=== PATIENT | female | born 1970 | race Caucasian/White ===

== ENCOUNTER 2016-10-13 18:22 | Emergency (ER) | payer MEDICARE, OTHER ==
[2016-10-13 18:37] VITALS: TEMP 98.3
[2016-10-13] MEDS ORDERED: SODIUM CHLORIDE 0.9% 1,000 ML IV ONE (20:44)
[2016-10-13] MEDS ORDERED: HYDROmorphone 1 MG/ML 1 ML SYRINGE IVP STA (20:44)
--- NOTE | 2016-10-13 20:47 | ED ---
Abdominal Pain HPI - General Chief Complaint: Abdominal Pain Stated Complaint: rt side pain Time Seen by Provider: 10/13/16 20:15 Source: patient, RN notes reviewed Mode of arrival: ambulatory Limitations: no limitations - History of Present Illness Initial Comments: Patient is a 46-year-old female presents to the emergency for evaluation of abdominal pain. Patient states the pain began on Tuesday. Patient states the pain has been persistent ever since. Patient states the pain began worsening today. Patient does state that she is on oxycodone for chronic neck and back pain. Patient states the oxycodone has been helping her pain. Patient states she hasn't had any medications since 3 PM and the pain is worsening. Patient states the pain is located in her right lower quadrant area. Patient states she still has her appendix and gallbladder. Patient states she has a history of total hysterectomy, but still has her ovaries. Patient does states that she has a history of ovarian cysts. Patient states she is slightly nauseous but denies any vomiting. Patient states her last bowel movement was this morning. Patient states she originally thought she was constipated. Patient states she has a history of IBS. Patient denies pain or burning during urination, trouble urinating or blood in urine. Patient denies history of kidney stones. Patient denies any fevers or chills. Patient denies chest pain or shortness of breath. Patient states that 8 out of 10 constant right lower quadrant pain. - Related Data Home Medications Medication Instructions Recorded Confirmed Gabapentin 800 mg PO QID 10/13/16 10/13/16 Phentermine HCl [Adipex-P] 37.5 mg PO QAM 10/13/16 10/13/16 oxyCODONE HCL [Roxicodone] 30 mg PO QID PRN 10/13/16 10/13/16 traMADol HCL [Ultram] 50 mg PO TID 10/13/16 10/13/16 Allergies Allergy/AdvReac Type Severity Reaction Status Date / Time Sulfa (Sulfonamide Allergy Rash/Hives Verified 10/13/16 20:38 Antibiotics) Review of Systems ROS Statement: Those systems with pertinent positive or pertinent negative responses have been documented in the HPI. ROS Other: All systems not noted in ROS Statement are negative. Past Medical History Additional Past Medical History / Comment(s): IBS, chronic back pain History of Any Multi-Drug Resistant Organisms: MRSA Date of last positivie culture/infection: 2009 MDRO Source:: nose Past Surgical History: Back Surgery, Hysterectomy, Orthopedic Surgery, Tubal Ligation Past Psychological History: No Psychological Hx Reported Smoking Status: Current every day smoker Past Alcohol Use History: Rare Past Drug Use History: None Reported General Exam - General Exam Comments Initial Comments: Laying in exam room, no acute distress. Limitations: no limitations General appearance: alert, in no apparent distress Head exam: Present: atraumatic, normocephalic, normal inspection Eye exam: Present: normal appearance ENT exam: Present: normal exam Neck exam: Present: normal inspection Respiratory exam: Present: normal lung sounds bilaterally. Absent: respiratory distress Cardiovascular Exam: Present: regular rate, normal rhythm, normal heart sounds GI/Abdominal exam: Present: soft, tenderness (Right lower quadrant tenderness), normal bowel sounds. Absent: distended, guarding, rebound, rigid Extremities exam: Present: normal inspection Back exam: Present: normal inspection Neurological exam: Present: alert, oriented X3, CN II-XII intact, normal gait Psychiatric exam: Present: normal affect, normal mood Skin exam: Present: warm, dry, intact, normal color. Absent: rash Course Vital Signs 10/13/16 18:34 Temperature 98.3 F Pulse Rate 92 Respiratory 20 Rate Blood Pressure 128/76 O2 Sat by Pulse 99 Oximetry Medical Decision Making - Medical Decision Making Patient is a 46-year-old female presents to the emergency room for evaluation of right lower quadrant pain. Labs show no concerning findings. Urinalysis within normal limits. CT abdomen/pelvis was ordered to rule out appendicitis. Appendix appears normal. 2 mm stone in the lower pole right kidney noted. 3 cm right ovarian cyst noted. Ovarian cyst probable cause of patient's pain. Patient states she takes oxycodone at home. Advised patient to continue taking that as needed. Advised patient to follow-up with her [facility] or primary care provider for reevaluation. Advised patient to return for worsening or concerning symptoms. Patient states she understands everything that was discussed with her. Case discussed with Dr. Griffin. - Lab Data Result diagrams: 10/13/16 21:05 10/13/16 21:05 Lab Results 10/13/16 10/13/16 10/13/16 Range/Units 21:05 21:05 21:05 WBC 11.6 H (3.8-10.6) k/uL RBC 4.84 (3.80-5.40) m/uL Hgb 15.5 (11.4-16.0) gm/dL Hct 45.9 (34.0-46.0) % MCV 94.9 (80.0-100.0) fL MCH 32.0 (25.0-35.0) pg MCHC 33.7 (31.0-37.0) g/dL RDW 13.1 (11.5-15.5) % Plt Count 292 (150-450) k/uL Neutrophils % 52 % Lymphocytes % 38 % Monocytes % 5 % Eosinophils % 3 % Basophils % 1 % Neutrophils # 6.0 (1.3-7.7) k/uL Lymphocytes # 4.4 (1.0-4.8) k/uL Monocytes # 0.6 (0-1.0) k/uL Eosinophils # 0.3 (0-0.7) k/uL Basophils # 0.1 (0-0.2) k/uL Sodium 138 (137-145) mmol/L Potassium 4.2 (3.5-5.1) mmol/L Chloride 105 (98-107) mmol/L Carbon Dioxide 25 (22-30) mmol/L Anion Gap 8 mmol/L BUN 12 (7-17) mg/dL Creatinine 0.55 (0.52-1.04) mg/dL Est GFR (MDRD) Af Amer >60 (>60 ml/min/1.73 sqM) Est GFR (MDRD) Non-Af >60 (>60 ml/min/1.73 sqM) Glucose 115 H (74-99) mg/dL Calcium 9.6 (8.4-10.2) mg/dL Total Bilirubin 0.7 (0.2-1.3) mg/dL AST 25 (14-36) U/L ALT 21 (9-52) U/L Alkaline Phosphatase 71 (38-126) U/L Total Protein 7.4 (6.3-8.2) g/dL Albumin 4.1 (3.5-5.0) g/dL Amylase 33 (30-110) U/L Lipase 34 (23-300) U/L Urine Color Light Yellow Urine Appearance Clear (Clear) Urine pH 6.0 (5.0-8.0) Ur Specific [place] 1.005 (1.001-1.035) Urine Protein Negative (Negative) Urine Glucose (UA) Negative (Negative) Urine Ketones Negative (Negative) Urine Blood Negative (Negative) Urine Nitrite Negative (Negative) Urine Bilirubin Negative (Negative) Urine Urobilinogen <2.0 (<2.0) mg/dL Ur Leukocyte Esterase Negative (Negative) - Radiology Data Radiology results: report reviewed, image reviewed Disposition Clinical Impression: Right ovarian cyst Disposition: HOME SELF-CARE Condition: Good Instructions: Ovarian Cyst (ED) Additional Instructions: Take at home pain medications as needed. Please follow up with primary care provider or [facility] in 1-2 days. If any new symptom arises or symptoms worsen, return to ER as soon as possible. Referrals: Roger Weber MD [Primary Care Provider] - 1-2 days Time of Disposition: 23:10
[2016-10-13 21:13] LABS: Appearance,Urine Clear (Clear); Bilirubin,Urine Negative (Negative); Glucose,Urine (UA) Negative (Negative); Ketones,Urine Negative (Negative); Leukocyte Esterase,Urine Negative (Negative); Nitrite,Urine Negative (Negative); Protein,Urine Negative (Negative); Specific Gravity,Urine 1.005 (1.001-1.035); UA Billing (MACRO vs. MICRO) CHEM; Urobilinogen,Urine <2.0 mg/dL (<2.0)
[2016-10-13 21:14] LABS: Basophils # (A) 0.1 k/uL (0-0.2); Basophils % (A) 1 %; CH 32.1; Eosinophils # (A) 0.3 k/uL (0-0.7); Eosinophils % (A) 3 %; HCT 45.9 % (34.0-46.0); HGB 15.5 gm/dL (11.4-16.0); Luc # (Auto) 0.18; Luc % (Auto) 2; Lymphocytes # (A) 4.4 k/uL (1.0-4.8); Lymphocytes % (A) 38 %; MCHC 33.7 g/dL (31.0-37.0); MCV 94.9 fL (80.0-100.0); Mean Platelet Volume 7.3; Monocytes # (A) 0.6 k/uL (0-1.0); Monocytes % (A) 5 %; Neutrophils % (A) 52 %; RBC 4.84 m/uL (3.80-5.40); RDW 13.1 % (11.5-15.5); WBC 11.6 k/uL (3.8-10.6); WBC (Perox) 11.32
--- NOTE | 2016-10-13 21:15 | XR ---
EXAMINATION TYPE: XR KUB DATE OF EXAM: 10/13/2016 9:11 PM COMPARISON: 11/11/2011 INDICATION: Pain right lower quadrant TECHNIQUE: Single view abdomen frontal FINDINGS: There is a normal bowel gas pattern. Psoas margins are normal. No organomegaly is present. Nonspecific bowel gas is present. No free air is present. No differential air-fluid levels are present. Postsurgical changes are present L4-5 with pedicle screws and fixation rods. IMPRESSION: 1. Nonspecific abdomen.
[2016-10-13 21:22] LABS: ALT 21 U/L (9-52); AST 25 U/L (14-36); Alkaline Phosphatase 71 U/L (38-126); Amylase 33 U/L (30-110); Anion Gap 8 mmol/L; Blood Urea Nitrogen 12 mg/dL (7-17); Calcium 9.6 mg/dL (8.4-10.2); Carbon Dioxide 25 mmol/L (22-30); Chloride 105 mmol/L (98-107); Glucose 115 mg/dL (74-99); Non-African American GFR(MDRD) >60 (>60 ml/min/1.73 sqM); Potassium 4.2 mmol/L (3.5-5.1); Sodium 138 mmol/L (137-145); Total Bilirubin 0.7 mg/dL (0.2-1.3); Total Protein 7.4 g/dL (6.3-8.2)
[2016-10-13] MEDS ORDERED: RX INFO: IV CONTRAST WAS GIVEN 1 EACH MISC MISCELLANE PRN (21:35)
--- NOTE | 2016-10-13 22:59 | CT ---
EXAM: CT Abdomen and Pelvis With Intravenous Contrast. CLINICAL HISTORY: Reason: Pain TECHNIQUE: Axial computed tomography images of the abdomen and pelvis with intravenous contrast. CTDI is 9.5 mGy and DLP is 810 mGy-cm This CT exam was performed using one or more of the following dose reduction techniques: automated exposure control, adjustment of the mA and/or kV according to patient size, and/or use of iterative reconstruction technique. COMPARISON: 11/11/11 FINDINGS: The lung bases are clear. The liver, biliary tree, pancreas, spleen, and adrenal glands are within normal limits for noncontrast technique. Once again, there is a 2 mm calculus to the lower pole of the right kidney. No ureteral stone or hydronephrosis. There is no bowel obstruction or perforation. A normal appendix is noted. Status post hysterectomy. This was performed in the interval. 3 cm right ovarian cyst. Mild aortoiliac atherosclerosis without aneurysm. L4-5 fusion with pedicle screws and paravertebral rods and interbody graft for treatment of L4 spondylolysis, also new in the interval. No acute fracture. IMPRESSION: No clear explanation for pain. Nonobstructing right renal calculus again noted. Interval hysterectomy and lumbar fusion. 3 cm right ovarian cyst.
[2016-10-13 23:28] VITALS: BP 130/61; PULSE 84; RESP 18
== END 2016-10-13 23:28 | disposition home or self-care (01) ==
LOC: EC 18:22
DX: N83.201 Unspecified ovarian cyst, right side (principal); M54.2 Cervicalgia; M54.9 Dorsalgia, unspecified; K58.9 Irritable bowel syndrome, unspecified; G89.29 Other chronic pain; F17.200 Nicotine dependence, unspecified, uncomplicated; Z79.891 Long term (current) use of opiate analgesic; Z79.899 Other long term (current) drug therapy; Z88.2 Allergy status to sulfonamides; Z90.710 Acquired absence of both cervix and uterus
CPT/HCPCS: 36415; 80053; 82150; 83690; 85025; 81003; 74000; 74177; 99284; 96374; 96361; J1170; Q9967

== ENCOUNTER 2017-02-03 23:35 | Inpatient (IN) | payer MEDICARE, OTHER ==
[2017-02-03] MEDS ORDERED: MORPHINE SULFATE 4 MG/ML SYRINGE IV STA (23:56)
[2017-02-03] MEDS ORDERED: KETOROLAC 30 MG/ML 1 ML VIAL IVP STA (23:56)
[2017-02-03] MEDS ORDERED: ONDANSETRON 4 MG/2 ML VIAL IVP STA (23:56)
[2017-02-03] MEDS ORDERED: SODIUM CHLORIDE 0.9% 500 ML IV STA (23:56)
[2017-02-04] MEDS ORDERED: HYDROmorphone 1 MG/ML 1 ML SYRINGE IVP STA (00:30)
[2017-02-04 00:34] LABS: Basophils # (A) 0.2 k/uL (0-0.2); Basophils % (A) 1 %; CH 32.8; CHCM 34.7; Eosinophils # (A) 0.5 k/uL (0-0.7); Eosinophils % (A) 3 %; HCT 44.5 % (34.0-46.0); HDW 2.39; HGB 14.8 gm/dL (11.4-16.0); Luc # (Auto) 0.21; Luc % (Auto) 1; Lymphocytes # (A) 4.2 k/uL (1.0-4.8); Lymphocytes % (A) 27 %; MCH 31.6 pg (25.0-35.0); MCHC 33.3 g/dL (31.0-37.0); MCV 94.9 fL (80.0-100.0); Mean Platelet Volume 7.8; Monocytes # (A) 0.6 k/uL (0-1.0); Monocytes % (A) 4 %; Neutrophils # (A) 9.6 k/uL (1.3-7.7); Neutrophils % (A) 63 %; RBC 4.69 m/uL (3.80-5.40); RDW 13.9 % (11.5-15.5); WBC 15.3 k/uL (3.8-10.6); WBC (Perox) 14.36
[2017-02-04 00:34] LABS: Appearance,Urine Clear (Clear); Bilirubin,Urine Negative (Negative); Glucose,Urine (UA) Negative (Negative); Ketones,Urine Negative (Negative); Leukocyte Esterase,Urine Negative (Negative); Nitrite,Urine Negative (Negative); Protein,Urine Trace (Negative); Specific Gravity,Urine 1.014 (1.001-1.035); UA Billing (MACRO vs. MICRO) CHEM; Urobilinogen,Urine <2.0 mg/dL (<2.0)
[2017-02-04 00:45] LABS: ALT 31 U/L (9-52); AST 19 U/L (14-36); Alkaline Phosphatase 98 U/L (38-126); Amylase <30 U/L (30-110); Anion Gap 11 mmol/L; Blood Urea Nitrogen 10 mg/dL (7-17); Calcium 9.5 mg/dL (8.4-10.2); Carbon Dioxide 24 mmol/L (22-30); Chloride 102 mmol/L (98-107); Glucose 95 mg/dL (74-99); Non-African American GFR(MDRD) >60 (>60 ml/min/1.73 sqM); Potassium 4.4 mmol/L (3.5-5.1); Sodium 137 mmol/L (137-145); Total Bilirubin 0.3 mg/dL (0.2-1.3); Total Protein 6.8 g/dL (6.3-8.2)
[2017-02-04] MEDS ORDERED: RX INFO: IV CONTRAST WAS GIVEN 1 EACH MISC MISCELLANE PRN (01:05)
--- NOTE | 2017-02-04 01:06 | ED ---
Abdominal Pain HPI - General Chief Complaint: Abdominal Pain Stated Complaint: abd pain Time Seen by Provider: 02/03/17 23:51 Source: patient, RN notes reviewed Mode of arrival: ambulatory Limitations: no limitations - History of Present Illness Initial Comments: 46-year-old female presents emergency Department chief complaint right lower quadrant abdominal pain. Patient states she has a history of ovarian cysts and states pain feels similar. Patient states that she did have a temp of 100.8 prior arrival though she took Motrin. Patient states that she overtakes pain medications at home but states is not helping for this pain. Patient states that she's had a prior hysterectomy and tubal ligation. Patient denies any back pain, upper abdominal pain, chest pain, shortness of breath, dysuria or hematuria. - Related Data Home Medications Medication Instructions Recorded Confirmed Gabapentin 800 mg PO QID 10/13/16 10/13/16 Phentermine HCl [Adipex-P] 37.5 mg PO QAM 10/13/16 10/13/16 oxyCODONE HCL [Roxicodone] 30 mg PO QID PRN 10/13/16 10/13/16 traMADol HCL [Ultram] 50 mg PO TID 10/13/16 10/13/16 Allergies Allergy/AdvReac Type Severity Reaction Status Date / Time morphine Allergy Rash/Hives Verified 02/04/17 00:27 Sulfa (Sulfonamide Allergy Rash/Hives Verified 02/03/17 23:49 Antibiotics) Review of Systems ROS Statement: Those systems with pertinent positive or pertinent negative responses have been documented in the HPI. ROS Other: All systems not noted in ROS Statement are negative. Past Medical History Additional Past Medical History / Comment(s): IBS, chronic back pain History of Any Multi-Drug Resistant Organisms: MRSA Date of last positivie culture/infection: 2009 MDRO Source:: nose Past Surgical History: Back Surgery, Hysterectomy, Orthopedic Surgery, Tubal Ligation Past Psychological History: No Psychological Hx Reported Smoking Status: Current every day smoker Past Alcohol Use History: Rare Past Drug Use History: Marijuana General Exam Limitations: no limitations General appearance: alert, in no apparent distress Neck exam: Present: normal inspection. Absent: tenderness, meningismus, lymphadenopathy Respiratory exam: Present: normal lung sounds bilaterally. Absent: respiratory distress, wheezes, rales, rhonchi, stridor Cardiovascular Exam: Present: regular rate, normal rhythm, normal heart sounds. Absent: systolic murmur, diastolic murmur, rubs, gallop, clicks GI/Abdominal exam: Present: soft, tenderness (moderate right lower quadrant tenderness), normal bowel sounds. Absent: distended, guarding, rebound, rigid Back exam: Absent: CVA tenderness (R), CVA tenderness (L) Course Vital Signs 02/03/17 23:45 Temperature 97.5 F L Pulse Rate 98 Respiratory 18 Rate Blood Pressure 111/59 O2 Sat by Pulse 100 Oximetry Medical Decision Making - Lab Data Result diagrams: 02/04/17 00:01 02/04/17 00:01 Lab Results 02/04/17 02/04/17 02/04/17 Range/Units 00:01 00:01 00:21 WBC 15.3 H (3.8-10.6) k/uL RBC 4.69 (3.80-5.40) m/uL Hgb 14.8 (11.4-16.0) gm/dL Hct 44.5 (34.0-46.0) % MCV 94.9 (80.0-100.0) fL MCH 31.6 (25.0-35.0) pg MCHC 33.3 (31.0-37.0) g/dL RDW 13.9 (11.5-15.5) % Plt Count 334 (150-450) k/uL Neutrophils % 63 % Lymphocytes % 27 % Monocytes % 4 % Eosinophils % 3 % Basophils % 1 % Neutrophils # 9.6 H (1.3-7.7) k/uL Lymphocytes # 4.2 (1.0-4.8) k/uL Monocytes # 0.6 (0-1.0) k/uL Eosinophils # 0.5 (0-0.7) k/uL Basophils # 0.2 (0-0.2) k/uL Sodium 137 (137-145) mmol/L Potassium 4.4 (3.5-5.1) mmol/L Chloride 102 (98-107) mmol/L Carbon Dioxide 24 (22-30) mmol/L Anion Gap 11 mmol/L BUN 10 (7-17) mg/dL Creatinine 0.60 (0.52-1.04) mg/dL Est GFR (MDRD) Af Amer >60 (>60 ml/min/1.73 sqM) Est GFR (MDRD) Non-Af >60 (>60 ml/min/1.73 sqM) Glucose 95 (74-99) mg/dL Calcium 9.5 (8.4-10.2) mg/dL Total Bilirubin 0.3 (0.2-1.3) mg/dL AST 19 (14-36) U/L ALT 31 (9-52) U/L Alkaline Phosphatase 98 (38-126) U/L Total Protein 6.8 (6.3-8.2) g/dL Albumin 3.9 (3.5-5.0) g/dL Amylase <30 L (30-110) U/L Lipase 32 (23-300) U/L Urine Color Yellow Urine Appearance Clear (Clear) Urine pH 6.0 (5.0-8.0) Ur Specific [place] 1.014 (1.001-1.035) Urine Protein Trace H (Negative) Urine Glucose (UA) Negative (Negative) Urine Ketones Negative (Negative) Urine Blood Negative (Negative) Urine Nitrite Negative (Negative) Urine Bilirubin Negative (Negative) Urine Urobilinogen <2.0 (<2.0) mg/dL Ur Leukocyte Esterase Negative (Negative) Disposition Clinical Impression: Infectious enteritis, Ovarian cyst Narrative: rule out appendicitis Disposition: ADMITTED IP TO THIS HOSP Condition: Fair Referrals: Roger Weber MD [Primary Care Provider] - 1-2 days
--- NOTE | 2017-02-04 01:22 | XR ---
EXAM: XR Abdomen, 1 View CLINICAL HISTORY: Reason: abdominal pain TECHNIQUE: Frontal supine view of the abdomen/pelvis. COMPARISON: 10/13/2016 FINDINGS: Gastrointestinal tract: Unremarkable. No dilation. Bones/joints: Post surgical changes are again present at L4-L5 with pedicle screws and fixation rods. IMPRESSION: No acute findings.
--- NOTE | 2017-02-04 02:21 | CT ---
EXAM: CT Abdomen and Pelvis With Intravenous Contrast CLINICAL HISTORY: Reason: right lower quadrant pain, fever, leukocytosis TECHNIQUE: Axial computed tomography images of the abdomen and pelvis with intravenous contrast. CTDI is 26.6 mGy and DLP is 911.30 mGy-cm. This CT exam was performed using one or more of the following dose reduction techniques: automated exposure control, adjustment of the mA and/or kV according to patient size, and/or use of iterative reconstruction technique. COMPARISON: 10/13/2016 FINDINGS: Lower thorax: Mild dependent atelectasis is seen involving both lower lobes, right greater than left. ABDOMEN: Liver: Evidence of mild hepatic steatosis. Gallbladder and bile ducts: Unremarkable. No calcified stones. No ductal dilation. Pancreas: Unremarkable. No mass. No ductal dilation. Spleen: Unremarkable. No splenomegaly. Adrenals: Unremarkable. No mass. Kidneys and ureters: Unremarkable. No solid mass. No hydronephrosis. Stomach and bowel: Evaluation of the bowel is limited without the use of oral contrast material. Within this limitation, there appears to be distal small bowel loops with wall thickening in the right lower quadrant with surrounding fatty infiltration (as seen on series 3, image 66 and series 7, image 47). This may represent enteritis secondary to an infectious versus an inflammatory etiology. Alternatively, this may be a right adnexal mass, measuring up to 3.6 cm in greatest axial dimension. Appendix: A normal appendix is seen. PELVIS: Bladder: Unremarkable. No mass. Reproductive: See above. ABDOMEN and PELVIS: Intraperitoneal space: Trace pelvic free fluid, which may represent physiologic or related to the above-mentioned findings. No free air. No significant fluid collection. Bones/joints: Postoperative changes involving the lower lumbar spine. No acute fracture. No dislocation. Soft tissues: Unremarkable. Vasculature: Mild atherosclerotic vascular calcifications involving the abdominal aorta. No abdominal aortic aneurysm. Lymph nodes: Unremarkable. No enlarged lymph nodes. IMPRESSION: Evaluation of the bowel is limited these oral contrast material. Within this limitation, there appears to be distal small bowel loops with wall thickening in the right lower quadrant with surrounding fatty infiltration. This may represent enteritis secondary to an infectious versus an inflammatory etiology. Alternatively, this may be a right adnexal mass, measuring up to 3.6 cm in greatest axial dimension. Clinical correlation recommended for right ovarian torsion. Pelvic ultrasound may performed for further evaluation. Alternatively, CT of the abdomen/pelvis with copious amounts of oral contrast may be used for further evaluation.
[2017-02-04] MEDS ORDERED: NALOXONE 0.4 MG/ML 1 ML VIAL IV PRN ×2 (02:42→17:48)
[2017-02-04] MEDS ORDERED: ONDANSETRON 4 MG/2 ML VIAL IVP PRN ×2 (02:44→17:46)
[2017-02-04] MEDS ORDERED: PIPERACILLIN-TAZOBACTAM 3.375 GM in DEXTROSE/WATER 1 50ML.BAG IVPB STA (02:44)
[2017-02-04] MEDS: SODIUM CHLORIDE 0.9% 1,000 ML IV SCH ×2 (02:51→16:36)
[2017-02-04] MEDS: HYDROmorphone 1 MG/ML 1 ML SYRINGE IV PRN ×6 (02:56→23:22)
[2017-02-04 03:55] VITALS: BMI 32.5
[2017-02-04 08:46] LABS: Basophils # (A) 0.1 k/uL (0-0.2); Basophils % (A) 1 %; CH 32.7; CHCM 33.8; Eosinophils # (A) 0.4 k/uL (0-0.7); Eosinophils % (A) 3 %; HCT 44.3 % (34.0-46.0); HDW 2.37; HGB 14.3 gm/dL (11.4-16.0); Luc # (Auto) 0.21; Luc % (Auto) 2; Lymphocytes # (A) 3.6 k/uL (1.0-4.8); Lymphocytes % (A) 28 %; MCH 31.4 pg (25.0-35.0); MCHC 32.4 g/dL (31.0-37.0); MCV 96.9 fL (80.0-100.0); Mean Platelet Volume 8.3; Monocytes # (A) 0.5 k/uL (0-1.0); Monocytes % (A) 4 %; Neutrophils % (A) 62 %; RBC 4.57 m/uL (3.80-5.40); RDW 13.4 % (11.5-15.5); WBC 12.9 k/uL (3.8-10.6); WBC (Perox) 12.74
--- NOTE | 2017-02-04 09:36 | US ---
EXAMINATION TYPE: US pelvis complete transvag DATE OF EXAM: 02/04/2017 COMPARISON: CT 02/04/2017 CLINICAL HISTORY: Pain. RLQ pain, Hysterectomy 5 years ago. TECHNIQUE: Transvaginal (TV) and Transabdominal (TA) Date of LMP: s/p hysterectomy EXAM MEASUREMENTS: Uterus: Surgically absent cm Endometrial Stripe: Surgically absent cm Right Ovary: 4.7 x 3.5 x 3.3 cm Left Ovary: 2.8 x 1.6 x 1.6 cm 1. Uterus: absent 2. Endometrium: absent 3. Right Ovary: heterogeneous texture. No blood flow seen to right ovary. ? right ovarian torsion. 7 mm cyst noted. 4. Left Ovary: echogenic foci within =0.7 x 0.5 x 0.4 cm Spectral, color and waveform doppler imaging shows good arterial and venous flow within the left ov anderson; There is no flow seen within the right ovary. ? ovarian torsion. 5. Bilateral Adnexa: wnl 6. Posterior cul-de-sac: wnl IMPRESSION: Findings compatible with right ovarian torsion as noted on CT report same date. Postop ulises casas.
--- NOTE | 2017-02-04 11:10 | P.HPIM ---
History of Present Illness H&P Date: 02/04/17 Chief Complaint: abdominal pain 46-year-old female with history of cervical cancer in situ status post hysterectomy or 5 years ago comes in the hospital with the right-sided abdominal pain that is ongoing for the last 5 days. Patient states that she has had multiple ovarian cyst in the past last episode of abdominal pain was 2 months ago however this episode is significantly worse over the last 2 weeks patient has had associated chills and inability to tolerate the any fluids at this time Patient underwent a computed tomography scan of the abdomen there is a large cyst noted in the right ovary. A ultrasound of the pelvis was noted without any blood flow to the ovary concerning for an ovarian torsion At this time patient rates her pain as a 10 out of 10 in her right lower hemiabdomen patient denies having any urinary urgency frequency. or diarrhea constipation or any change in bowel habits. Review of Systems All systems: negative (Noted in HPI) Past Medical History Additional Past Medical History / Comment(s): IBS, chronic back pain History of Any Multi-Drug Resistant Organisms: MRSA Date of last positivie culture/infection: 2009 MDRO Source:: nose Past Surgical History: Back Surgery, Hysterectomy, Orthopedic Surgery, Tubal Ligation Past Anesthesia/Blood Transfusion Reactions: No Reported Reaction Past Psychological History: No Psychological Hx Reported Smoking Status: Current every day smoker Past Alcohol Use History: Rare Past Drug Use History: Marijuana - Past Family History Mother Family Medical History: Deep Vein Thrombosis (DVT) Medications and Allergies Home Medications Medication Instructions Recorded Confirmed Type Gabapentin 800 mg PO QID 10/13/16 02/04/17 History Phentermine HCl [Adipex-P] 37.5 mg PO QAM 10/13/16 02/04/17 History oxyCODONE HCL [Roxicodone] 30 mg PO QID PRN 10/13/16 02/04/17 History traMADol HCL [Ultram] 50 mg PO TID 10/13/16 02/04/17 History Ibuprofen [Motrin] 800 mg PO HS PRN 02/04/17 02/04/17 History Allergies Allergy/AdvReac Type Severity Reaction Status Date / Time morphine Allergy Rash/Hives Verified 02/04/17 07:44 Sulfa (Sulfonamide Allergy Rash/Hives Verified 02/04/17 07:44 Antibiotics) Physical Exam Vitals: Vital Signs Temp Pulse Pulse Pulse Resp BP BP 02/04/17 07:00 98.3 F 81 16 116/66 02/04/17 04:29 97 F L 88 18 122/72 02/04/17 03:29 70 16 129/79 02/04/17 03:02 98.4 F 68 16 142/66 02/03/17 23:45 97.5 F L 98 18 111/59 Pulse Ox 02/04/17 07:00 95 02/04/17 04:29 97 02/04/17 03:29 99 02/04/17 03:02 100 02/03/17 23:45 100 Intake and Output 02/03/17 02/04/17 02/04/17 22:59 06:59 14:59 Intake Total 125 Balance 125 Intake: Intake, IV Titration 125 Amount Piperacillin-Tazobactam 3 50 .375 gm In Dextrose/Water 1 50ml.bag @ 12.5 mls/hr IVPB Q8H GE[facility]ANNA Rx#: [id number] Sodium Chloride 0.9% 1, 75 000 ml @ 75 mls/hr IV . [id number] GEOVANNA Rx#:[id number] Other: Voiding Method Toilet Toilet # Voids 1 Weight 78.018 kg Physical exam Gen. appearance oriented 3 in no distress Neck is supple no JVD Lungs g dish breath sounds no wheezing appreciated Heart S1-S2 heard regular rate and rhythm no murmurs appreciated Abdomen and tenderness in the right lower quadrant Neurologically cranial nerves II-12 grossly intact no focal motor or sensory deficits noted Skin no abnormalities appreciated Results CBC & Chem 7: 02/04/17 08:27 02/04/17 00:01 Labs: Abnormal Lab Results - Last 24 Hours (Table) 02/04/17 02/04/17 02/04/17 Range/Units 00:01 00:01 00:21 WBC 15.3 H (3.8-10.6) k/uL Neutrophils # 9.6 H (1.3-7.7) k/uL Plasma Lactic Acid Fredrick (0.7-2.0) mmol/L Amylase <30 L (30-110) U/L Urine Protein Trace H (Negative) 02/04/17 02/04/17 Range/Units 08:27 08:27 WBC 12.9 H (3.8-10.6) k/uL Neutrophils # 8.0 H (1.3-7.7) k/uL Plasma Lactic Acid Fredrick 0.6 L (0.7-2.0) mmol/L Amylase (30-110) U/L Urine Protein (Negative) Thrombosis Risk Factor Assmnt - Choose All That Apply Any of the Below Risk Factors Present?: No Assessment and Plan Plan: Right ovarian torsion? #2 ongoing tobacco use underlying COPD #3 history of JOHN status post hysterectomy plan patient will likely need a surgical expiration with the pain and the computed tomography scan findings Pain control strict nothing by mouth patient is clear for surgery due to the emergent nature We'll discuss with the auto service writer on-call
[2017-02-04] MEDS: PIPERACILLIN-TAZOBACTAM 3.375 GM in DEXTROSE/WATER 1 50ML.BAG IVPB SCH ×2 (11:28→20:20)
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
[2017-02-04] MEDS ORDERED: IV FLUID CONTINUATION 1,000 ML IV ONE (15:46)
--- NOTE | 2017-02-04 16:08 | P.GSCN ---
History of Present Illness Consult date: 02/04/17 Reason for Consult: Right lower quadrant pain History of present illness: Patient presents to the hospital with a 7-10 day history of right lower quadrant pain. He says this reminds her of the ovarian cystic pain she has had in the past. She underwent a CAT scan which showed some inflammatory changes in the right pelvis. An ultrasound of the pelvis was performed which suggests a possible ovarian torsion. Her appendix appeared normal. Denies fevers. Some nausea. Appetite is diminished. No change in bowel habits. She has chronic constipation issues. White blood cell count was 15 today is 12.9. Lactic acid normal. Review of Systems The patient denies any acute changes in vision or hearing, no dysphagia or odynophagia, no chest pain or shortness of breath, no dysuria or hematuria, no headache, no runny nose, no rectal bleeding or melena, no unexplained weight loss Past Medical History Additional Past Medical History / Comment(s): IBS, chronic back pain History of Any Multi-Drug Resistant Organisms: MRSA Year Discovered:: 2009 MDRO Source:: nose Past Surgical History: Back Surgery, Hysterectomy, Orthopedic Surgery, Tubal Ligation Past Anesthesia/Blood Transfusion Reactions: No Reported Reaction Past Psychological History: No Psychological Hx Reported Smoking Status: Current every day smoker Past Alcohol Use History: Rare Past Drug Use History: Marijuana - Past Family History Mother Family Medical History: Deep Vein Thrombosis (DVT) Medications and Allergies Home Medications Medication Instructions Recorded Confirmed Type Gabapentin 800 mg PO QID 10/13/16 02/04/17 History Phentermine HCl [Adipex-P] 37.5 mg PO QAM 10/13/16 02/04/17 History oxyCODONE HCL [Roxicodone] 30 mg PO QID PRN 10/13/16 02/04/17 History traMADol HCL [Ultram] 50 mg PO TID 10/13/16 02/04/17 History Ibuprofen [Motrin] 800 mg PO HS PRN 02/04/17 02/04/17 History Allergies Allergy/AdvReac Type Severity Reaction Status Date / Time morphine Allergy Rash/Hives Verified 02/04/17 07:44 Sulfa (Sulfonamide Allergy Rash/Hives Verified 02/04/17 07:44 Antibiotics) Surgical - Exam Vital Signs Temp Pulse Resp BP Pulse Ox 97.5 F L 98 18 111/59 100 02/03/17 23:45 02/03/17 23:45 02/03/17 23:45 02/03/17 23:45 02/03/17 23:45 Physical exam: General: Well-developed, well-nourished HEENT: Normocephalic, sclerae nonicteric Abdomen: Right lower quadrant tenderness, nondistended Extremities: No edema Neuro: Alert and oriented Results - Labs 02/04/17 08:27 02/04/17 00:01 Abnormal Lab Results - Last 24 Hours (Table) 02/04/17 02/04/17 02/04/17 Range/Units 00:01 00:01 00:21 WBC 15.3 H (3.8-10.6) k/uL Neutrophils # 9.6 H (1.3-7.7) k/uL Plasma Lactic Acid Fredrick (0.7-2.0) mmol/L Amylase <30 L (30-110) U/L Urine Protein Trace H (Negative) 02/04/17 02/04/17 Range/Units 08:27 08:27 WBC 12.9 H (3.8-10.6) k/uL Neutrophils # 8.0 H (1.3-7.7) k/uL Plasma Lactic Acid Fredrick 0.6 L (0.7-2.0) mmol/L Amylase (30-110) U/L Urine Protein (Negative) Diabetes panel 02/04/17 Range/Units 00:01 Sodium 137 (137-145) mmol/L Potassium 4.4 (3.5-5.1) mmol/L Chloride 102 (98-107) mmol/L Carbon Dioxide 24 (22-30) mmol/L BUN 10 (7-17) mg/dL Creatinine 0.60 (0.52-1.04) mg/dL Glucose 95 (74-99) mg/dL Calcium 9.5 (8.4-10.2) mg/dL AST 19 (14-36) U/L ALT 31 (9-52) U/L Alkaline Phosphatase 98 (38-126) U/L Total Protein 6.8 (6.3-8.2) g/dL Albumin 3.9 (3.5-5.0) g/dL Calcium panel 02/04/17 Range/Units 00:01 Calcium 9.5 (8.4-10.2) mg/dL Albumin 3.9 (3.5-5.0) g/dL Pituitary panel 02/04/17 Range/Units 00:01 Sodium 137 (137-145) mmol/L Potassium 4.4 (3.5-5.1) mmol/L Chloride 102 (98-107) mmol/L Carbon Dioxide 24 (22-30) mmol/L BUN 10 (7-17) mg/dL Creatinine 0.60 (0.52-1.04) mg/dL Glucose 95 (74-99) mg/dL Calcium 9.5 (8.4-10.2) mg/dL Adrenal panel 02/04/17 Range/Units 00:01 Sodium 137 (137-145) mmol/L Potassium 4.4 (3.5-5.1) mmol/L Chloride 102 (98-107) mmol/L Carbon Dioxide 24 (22-30) mmol/L BUN 10 (7-17) mg/dL Creatinine 0.60 (0.52-1.04) mg/dL Glucose 95 (74-99) mg/dL Calcium 9.5 (8.4-10.2) mg/dL Total Bilirubin 0.3 (0.2-1.3) mg/dL AST 19 (14-36) U/L ALT 31 (9-52) U/L Alkaline Phosphatase 98 (38-126) U/L Total Protein 6.8 (6.3-8.2) g/dL Albumin 3.9 (3.5-5.0) g/dL Assessment and Plan (1) Right lower quadrant abdominal pain Narrative/Plan: Clinically the right ovary appears to be the source of pain at this time. Will remain on surgical standby in case any additional abnormalities are encountered intraoperatively. Potential need for bowel resection and/or ostomy was discussed as very unlikely possibilities. Patient is agreeable to the proposed procedure by gynecology. Status: Acute
[2017-02-04] MEDS ORDERED: LACTATED RINGERS 1,000 ML IV ONE ×3 (16:15→18:15)
[2017-02-04] MEDS ORDERED: LIDOCAINE 1% INJ 10MG/ML (20 ML MDV) ONE (16:57)
[2017-02-04] MEDS ORDERED: HYDROmorphone (PF) 1 MG/ML ONE (16:57)
[2017-02-04] MEDS ORDERED: PROPOFOL 10 MG/ML 20 ML VIAL IV ONE (16:57)
[2017-02-04] MEDS ORDERED: ROCURONIUM BROMIDE 10 MG/ML 10 ML VIAL IV ONE (16:57)
[2017-02-04] MEDS ORDERED: fentaNYL (PF) 50 MCG/ML 2 ML AMP ONE (16:57)
[2017-02-04] MEDS ORDERED: SUCCINYLCHOLINE CHLORIDE 100 MG/5 ML SYR IV ONE (16:57)
[2017-02-04] MEDS ORDERED: KETOROLAC 30 MG/ML 1 ML VIAL ONE (16:57)
[2017-02-04] MEDS ORDERED: GLYCOPYRROLATE 0.2 MG/ML 2 ML VIAL ONE (16:57)
[2017-02-04] MEDS ORDERED: MIDAZOLAM 2 MG/2 ML VIAL ONE (16:57)
[2017-02-04] MEDS ORDERED: NEOSTIGMINE 1 MG/ML 10 ML VIAL ONE (16:57)
[2017-02-04] MEDS ORDERED: SODIUM CHLORIDE 0.9% 50 ML with ceFAZolin 2,000 MG IV ONE ×2 (17:16)
[2017-02-04] MEDS ORDERED: KETOROLAC 30 MG/ML 1 ML VIAL IVP PRN (17:46)
[2017-02-04] MEDS ORDERED: diphenhydrAMINE 50 MG/ML 1 ML VIAL IVP PRN (17:46)
[2017-02-04] MEDS ORDERED: SIMETHICONE 80 MG CHEWABLE PO PRN (17:46)
--- NOTE | 2017-02-04 17:46 | P.OP ---
Date of Procedure: 02/04/17 Preoperative Diagnosis: pelvic pain: ovarian torsion Postoperative Diagnosis: same Procedure(s) Performed: exploratory laparotomy: rso Implants: Anesthesia: OSWALDO Surgeon: Jaspreet Salas Estimated Blood Loss (ml): 10 IV fluids (ml): 700 Urine output (ml): 100 Pathology: other (right ovary) Condition: stable Disposition: floor Indications for Procedure: Operative Findings: torsed right ovary grossly necrotic and adherent to small intestines and deep cul-de-sac Description of Procedure: Evelia was taken to the operating suite where a general anesthetic found be adequate. She was prepped and draped in normal sterile fashion placed in the dorsal supine position. Initially a mini laparotomy incision was made in the midline through this incision was carried through to underlying layer of the fascia with Bovie cautery. Fascia was then nicked in the midline and this opening was extended laterally with Cox scissors. Superior and inferior aspect of this incision were then grasped tented up and bluntly and sharply dissected off the rectus muscles. Rectus muscles were then divided the midline and blunt dissection through the peritoneum was made. This opening was then extended superiorly and inferiorly with good visualization of bowel both bowel and bladder. Self-retaining retractor was then inserted and bowels packed out of the operative field. Patient was then placed in Trendelenburg position and observations pelvis were done solid mass in the deep cul-de-sac was noted and elevated it had attached itself to small intestine but this attention was easily lysed free as was the attachment to the posterior cul-de-sac. It was plane to see at least 2 torsions of the ovary likely it attached itself to the bowel at some point and this allowed for the twisting of the ovary. We did untwist the ovary but it was black and appeared grossly necrotic. Therefore he clamp was used to clamp the pedicle and ovary was excised. 0 Vicryl suture was then used to tie off the pedicle. No bleeding is noted. Pelvis is irrigated no bleeding is still noted bowel was checked and no lacerations or lesions were noted therefore packing was removed and self-retaining retractor was removed. 0 Vicryl suture was then used to close the peritoneum fashion layer was then closed with 0 Vicryl suture one layer of 3-0 Vicryl was placed in deep subcuticular tissues to reapproximate the skin and close the space the skin was then closed with 4-0 Vicryl. Sponge, lap, needle counts were correct 2. Patient was then taken to the recovery room in stable and satisfactory condition.
[2017-02-04] MEDS ORDERED: HYDROmorphone 1 MG/ML 1 ML SYRINGE IVP ONE ×4 (18:00→18:20)
[2017-02-04] MEDS ORDERED: MEPERIDINE 50 MG/ML SYRINGE IVP ONE ×2 (18:25→18:30)
[2017-02-04] MEDS ORDERED: ALPRAZolam 0.25 MG TAB PO PRN (20:02)
[2017-02-04] MEDS: SENNOSIDES-DOCUSATE SODIUM 1 EACH TAB PO SCH (20:20)
[2017-02-04] MEDS: NICOTINE 21MG/24HR PATCH TRANSDERM SCH (20:21)
[2017-02-05] MEDS: HYDROmorphone PCA 5 MG/25 ML SYRINGE IV PRN ×2 (02:02→05:43)
[2017-02-05] MEDS: HYDROmorphone 1 MG/ML 1 ML SYRINGE IV PRN ×2 (02:39→06:12)
[2017-02-05] MEDS: PIPERACILLIN-TAZOBACTAM 3.375 GM in DEXTROSE/WATER 1 50ML.BAG IVPB SCH (03:17)
[2017-02-05 07:33] LABS: Basophils # (A) 0.1 k/uL (0-0.2); Basophils % (A) 1 %; CH 31.8; CHCM 33.6; Eosinophils # (A) 0.2 k/uL (0-0.7); Eosinophils % (A) 2 %; HCT 41.1 % (34.0-46.0); HDW 2.48; HGB 13.9 gm/dL (11.4-16.0); Luc # (Auto) 0.23; Luc % (Auto) 2; Lymphocytes # (A) 3.6 k/uL (1.0-4.8); Lymphocytes % (A) 27 %; MCHC 33.8 g/dL (31.0-37.0); MCV 94.8 fL (80.0-100.0); Mean Platelet Volume 7.5; Monocytes # (A) 0.6 k/uL (0-1.0); Monocytes % (A) 4 %; Neutrophils # (A) 8.8 k/uL (1.3-7.7); Neutrophils % (A) 65 %; RBC 4.34 m/uL (3.80-5.40); RDW 12.7 % (11.5-15.5); WBC 13.5 k/uL (3.8-10.6); WBC (Perox) 13.44
[2017-02-05] MEDS: SODIUM CHLORIDE 0.9% 1,000 ML IV SCH (07:38)
[2017-02-05] MEDS: NICOTINE 21MG/24HR PATCH TRANSDERM SCH (07:51)
[2017-02-05] MEDS: SENNOSIDES-DOCUSATE SODIUM 1 EACH TAB PO SCH (07:52)
[2017-02-05 08:27] VITALS: BP 153/80; PULSE 92; RESP 18; TEMP 97.6
--- NOTE | 2017-02-05 09:39 | P.PN ---
Progress Note - Text Evelia is seen and evaluated postop day 1. She is able to ambulate. At this time for catheter is still in place and plan removal soon. We'll discontinue her [employer] and switch her to proxy codon which is what she takes at home. She does not need any pain pill prescriptions from me as she says she has enough from her back pain. I informed her I cannot give her a higher dose of medication regardless. Her vital signs are stable and she is afebrile. Heart regular, lungs clear, extremities without pain. She is tolerating a diet well. We'll plan to watch her through the morning even potentially with early afternoon and if she is still doing well and is okay with medicine will plan discharged home later today.
[2017-02-05] MEDS ORDERED: HYDROmorphone 2 MG TAB PO PRN (09:41)
--- NOTE | 2017-02-05 17:34 | P.DS ---
Providers Date of admission: 02/04/17 02:42 Attending physician: Diana Hernandez Consults: 02/04/17 02:42 Consult Physician Stat Consulting Provider: Lucius Sánchez Consult Reason/Comments: infectious enteritis, rule out appendicitis Do you want consulting provider notified?: Yes, Notify in am 02/04/17 02:43 Consult Physician Urgent Consulting Provider: Jaspreet Salas Consult Reason/Comments: ovarian cyst Do you want consulting provider notified?: Yes, Notify in am [facility]: 46-year-old female with history of cervical cancer in situ status post hysterectomy or 5 years ago comes in the hospital with the right-sided abdominal pain that is ongoing for the last 5 days. Patient states that she has had multiple ovarian cyst in the past last episode of abdominal pain was 2 months ago however this episode is significantly worse over the last 2 weeks patient has had associated chills and inability to tolerate the any fluids at this time Patient underwent a computed tomography scan of the abdomen there is a large cyst noted in the right ovary. A ultrasound of the pelvis was noted without any blood flow to the ovary concerning for an ovarian torsion At this time patient rates her pain as a 10 out of 10 in her right lower hemiabdomen patient denies having any urinary urgency frequency. or diarrhea constipation or any change in bowel habits. 2016 Patient is status post oophorectomy Denies having fevers chills nausea vomiting diarrhea. Abdominal pain is controlled Physical exam Gen. appearance oriented 3 in no distress Neck is supple no JVD Lungs g dish breath sounds no wheezing appreciated Heart S1-S2 heard regular rate and rhythm no murmurs appreciated Abdomen and tenderness in the right lower quadrant Neurologically cranial nerves II-12 grossly intact no focal motor or sensory deficits noted Skin no abnormalities appreciated Plan: Right ovarian torsion status post oophorectomy #2 ongoing tobacco use underlying COPD #3 history of JOHN status post hysterectomy Patient has urinated and has passed flatus Patient has pain medications at home is to follow-up with Dr. Tariq in one week. Discharged home in a stable condition patient was noted to have a necrosed ovary with adhesions of the bowel Patient Condition at Discharge: Fair Plan - Discharge Summary New Discharge Prescriptions: Continue traMADol HCL [Ultram] 50 mg PO TID oxyCODONE HCL [Roxicodone] 30 mg PO QID PRN PRN Reason: Pain Phentermine HCl [Adipex-P] 37.5 mg PO QAM Gabapentin 800 mg PO QID Ibuprofen [Motrin] 800 mg PO HS PRN PRN Reason: Pain Discharge Medication List Gabapentin 800 mg PO QID 10/13/16 [History] Phentermine HCl [Adipex-P] 37.5 mg PO QAM 10/13/16 [History] oxyCODONE HCL [Roxicodone] 30 mg PO QID PRN 10/13/16 [History] traMADol HCL [Ultram] 50 mg PO TID 10/13/16 [History] Ibuprofen [Motrin] 800 mg PO HS PRN 02/04/17 [History] Follow up Appointment(s)/Referral(s): Jaspreet Salas DO [Doctor of Osteopathic Medicine] - 1 Week Roger Weber MD [Primary Care Provider] - 1-2 days Patient Instructions/Handouts: Ovarian Cyst (DC) Activity/Diet/Wound Care/Special Instructions: No heavy lifting, limit stairs and driving, and pelvic rest. If any high temperatures, heavy bleeding, or severe pain call my office Discharge Disposition: HOME SELF-CARE
== END 2017-02-05 13:45 | disposition home or self-care (01) | DRG 743 ==
LOC: EC 23:35 → 5MS5E 02-04 02:42
PROVIDERS: ADMIT Hospitalist; ATTEND Hospitalist
PROC: 0UT00ZZ Resection of Right Ovary, Open Approach (ICD-10-PCS; principal; 2017-02-04 10:50)
DX: N83.511 Torsion of right ovary and ovarian pedicle (principal); J44.9 Chronic obstructive pulmonary disease, unspecified; F17.200 Nicotine dependence, unspecified, uncomplicated; K58.9 Irritable bowel syndrome, unspecified; K59.09 Other constipation; G89.21 Chronic pain due to trauma; M54.9 Dorsalgia, unspecified; Z79.899 Other long term (current) drug therapy; Z86.14 Personal history of Methicillin resistant Staphylococcus aureus infection; Z88.5 Allergy status to narcotic agent; Z88.2 Allergy status to sulfonamides; Z85.41 Personal history of malignant neoplasm of cervix uteri; Z82.49 Family history of ischemic heart disease and other diseases of the circulatory system
CPT/HCPCS: 36415; 74000; 74177; 76830; 76856; 80053; 81003; 82150; 83605; 83690; 85025; 88305; 93975; 96365; 96375; 99285

== ENCOUNTER 2018-04-05 20:35 | Inpatient (IN) | payer MEDICARE, OTHER ==
[2018-04-05] MEDS ORDERED: HYDROmorphone 1 MG/ML 1 ML SYRINGE IVP STA ×2 (21:20→22:49)
[2018-04-05 21:59] LABS: Basophils # (A) 0.1 k/uL (0-0.2); Basophils % (A) 0 %; Eosinophils # (A) 0.2 k/uL (0-0.7); Eosinophils % (A) 2 %; HCT 44.9 % (34.0-46.0); HGB 14.7 gm/dL (11.4-16.0); Lymphocytes % (A) 19 %; MCHC 32.8 g/dL (31.0-37.0); MCV 97.7 fL (80.0-100.0); Mean Platelet Volume 7.9; Monocytes # (A) 0.7 k/uL (0-1.0); Monocytes % (A) 4 %; Neutrophils # (A) 11.4 k/uL (1.3-7.7); Neutrophils % (A) 73 %; Platelet Count 324 k/uL (150-450); RDW 12.9 % (11.5-15.5); WBC 15.6 k/uL (3.8-10.6)
[2018-04-05 22:07] LABS: Partial Thromboplastin Time 23.2 sec (22.0-30.0); Prothrombin Time 9.7 sec (9.0-12.0)
[2018-04-05 22:09] LABS: Anion Gap 10 mmol/L; Blood Urea Nitrogen 17 mg/dL (7-17); Calcium 9.4 mg/dL (8.4-10.2); Carbon Dioxide 24 mmol/L (22-30); Chloride 104 mmol/L (98-107); Glucose 111 mg/dL (74-99); Sodium 138 mmol/L (137-145)
--- NOTE | 2018-04-05 22:22 | ED ---
Skin/Abscess/FB HPI - General Source: patient, RN notes reviewed Mode of arrival: ambulatory Limitations: no limitations <Donavan Waldron - Last Filed: 04/05/18 23:14> <Marty Gimenez - Last Filed: 04/06/18 00:39> - General Chief complaint: Skin/Abscess/Foreign Body Stated complaint: Groin pain-cyst Time Seen by Provider: 04/05/18 20:55 - History of Present Illness Initial comments: 47-year-old female presents emergency Department chief complaint of abscess in her right groin, gluteal region. Patient states that she's had a past but usually ruptures and has no other symptoms. Patient states she's never seen a surgeon for this. Patient states that she had some drainage a few days ago but then she went to squeeze it and felt a pop and she's had excruciating pain she states that has tripled in size. Patient states she is in excruciating pain at this point. Patient's had no fever no chills. (Donavan Waldron) - Related Data Home Medications Medication Instructions Recorded Confirmed Gabapentin 800 mg PO QID 10/13/16 04/05/18 Phentermine HCl [Adipex-P] 37.5 mg PO QAM 10/13/16 04/05/18 oxyCODONE HCL [Roxicodone] 30 mg PO QID 10/13/16 04/05/18 traMADol HCL [Ultram] 50 mg PO TID 10/13/16 04/05/18 Ibuprofen [Motrin] 800 mg PO TID PRN 02/04/17 04/05/18 Omeprazole 40 mg PO DAILY 04/05/18 04/05/18 Allergies Allergy/AdvReac Type Severity Reaction Status Date / Time morphine Allergy Rash/Hives Verified 04/05/18 23:29 Sulfa (Sulfonamide Allergy Rash/Hives Verified 04/05/18 23:29 Antibiotics) Review of Systems ROS Other: All systems not noted in ROS Statement are negative. <Donavan Waldron - Last Filed: 04/05/18 23:14> ROS Other: All systems not noted in ROS Statement are negative. <Marty Gimenez - Last Filed: 04/06/18 00:39> ROS Statement: Those systems with pertinent positive or pertinent negative responses have been documented in the HPI. Past Medical History Additional Past Medical History / Comment(s): IBS, chronic back pain History of Any Multi-Drug Resistant Organisms: MRSA Date of last positivie culture/infection: 2009 MDRO Source:: nose Past Surgical History: Back Surgery, Hysterectomy, Orthopedic Surgery, Tubal Ligation Past Anesthesia/Blood Transfusion Reactions: No Reported Reaction Past Psychological History: No Psychological Hx Reported Smoking Status: Current every day smoker Past Alcohol Use History: Rare Past Drug Use History: Marijuana - Past Family History Mother Family Medical History: Deep Vein Thrombosis (DVT) <Donavan Waldron - Last Filed: 04/05/18 23:14> General Exam Limitations: no limitations General appearance: alert, in no apparent distress Head exam: Present: atraumatic, normocephalic, normal inspection Respiratory exam: Present: normal lung sounds bilaterally. Absent: respiratory distress, wheezes, rales, rhonchi, stridor Cardiovascular Exam: Present: regular rate, normal rhythm, normal heart sounds. Absent: systolic murmur, diastolic murmur, rubs, gallop, clicks GI/Abdominal exam: Present: soft, normal bowel sounds. Absent: distended, tenderness, guarding, rebound, rigid Rectal exam: Present: other (Right lower buttock/labial there is erythematous and moderately tender area approximately 2 x 3 cm) External exam: Absent: normal external exam (right labia abscess) Skin exam: Present: warm, dry, intact, normal color. Absent: rash <Donavan Waldron - Last Filed: 04/05/18 23:14> Vital Signs 04/05/18 04/05/18 20:48 23:10 Temperature 98.9 F 98.0 F Pulse Rate 103 H 95 Respiratory 20 18 Rate Blood Pressure 125/70 116/69 O2 Sat by Pulse 98 96 Oximetry Medical Decision Making - Lab Data Result diagrams: 04/05/18 21:30 04/05/18 21:30 <Donavan Waldron - Last Filed: 04/05/18 23:14> - Lab Data Result diagrams: 04/05/18 21:30 04/05/18 21:30 <Marty Gimenez - Last Filed: 04/06/18 00:39> - Medical Decision Making I saw this patient in conjunction with the physician gift shop assistant. I performed independent history and physical exam. Agree with case management. Case discussed with Dr. Abdi, who will admit for probable OR incision and drainage (Marty Gimenez) - Lab Data Lab Results 04/05/18 04/05/18 04/05/18 Range/Units 21:30 21:30 21:30 WBC 15.6 H (3.8-10.6) k/uL RBC 4.60 (3.80-5.40) m/uL Hgb 14.7 (11.4-16.0) gm/dL Hct 44.9 (34.0-46.0) % MCV 97.7 (80.0-100.0) fL MCH 32.0 (25.0-35.0) pg MCHC 32.8 (31.0-37.0) g/dL RDW 12.9 (11.5-15.5) % Plt Count 324 (150-450) k/uL Neutrophils % 73 % Lymphocytes % 19 % Monocytes % 4 % Eosinophils % 2 % Basophils % 0 % Neutrophils # 11.4 H (1.3-7.7) k/uL Lymphocytes # 3.0 (1.0-4.8) k/uL Monocytes # 0.7 (0-1.0) k/uL Eosinophils # 0.2 (0-0.7) k/uL Basophils # 0.1 (0-0.2) k/uL PT (9.0-12.0) sec INR (<1.2) APTT (22.0-30.0) sec Sodium 138 (137-145) mmol/L Potassium 5.0 (3.5-5.1) mmol/L Chloride 104 (98-107) mmol/L Carbon Dioxide 24 (22-30) mmol/L Anion Gap 10 mmol/L BUN 17 (7-17) mg/dL Creatinine 0.48 L (0.52-1.04) mg/dL Est GFR (CKD-EPI)AfAm >90 (>60 ml/min/1.73 sqM) Est GFR (CKD-EPI)NonAf >90 (>60 ml/min/1.73 sqM) Glucose 111 H (74-99) mg/dL Plasma Lactic Acid Fredrick 1.3 (0.7-2.0) mmol/L Calcium 9.4 (8.4-10.2) mg/dL 04/05/18 Range/Units 21:30 WBC (3.8-10.6) k/uL RBC (3.80-5.40) m/uL Hgb (11.4-16.0) gm/dL Hct (34.0-46.0) % MCV (80.0-100.0) fL MCH (25.0-35.0) pg MCHC (31.0-37.0) g/dL RDW (11.5-15.5) % Plt Count (150-450) k/uL Neutrophils % % Lymphocytes % % Monocytes % % Eosinophils % % Basophils % % Neutrophils # (1.3-7.7) k/uL Lymphocytes # (1.0-4.8) k/uL Monocytes # (0-1.0) k/uL Eosinophils # (0-0.7) k/uL Basophils # (0-0.2) k/uL PT 9.7 (9.0-12.0) sec INR 1.0 (<1.2) APTT 23.2 (22.0-30.0) sec Sodium (137-145) mmol/L Potassium (3.5-5.1) mmol/L Chloride (98-107) mmol/L Carbon Dioxide (22-30) mmol/L Anion Gap mmol/L BUN (7-17) mg/dL Creatinine (0.52-1.04) mg/dL Est GFR (CKD-EPI)AfAm (>60 ml/min/1.73 sqM) Est GFR (CKD-EPI)NonAf (>60 ml/min/1.73 sqM) Glucose (74-99) mg/dL Plasma Lactic Acid Fredrick (0.7-2.0) mmol/L Calcium (8.4-10.2) mg/dL Disposition <Donavan Waldron - Last Filed: 04/05/18 23:14> Is patient prescribed a controlled substance at d/c from ED?: No <Marty Gimenez - Last Filed: 04/06/18 00:39> Clinical Impression: Abscess of right genital labia Disposition: ADMITTED IP TO THIS HOSP Condition: Fair
[2018-04-05] MEDS ORDERED: PIPERACILLIN-TAZOBACTAM 3.375 GM in DEXTROSE/WATER 1 50ML.BAG IVPB STA (22:48)
[2018-04-05] MEDS ORDERED: VANCOMYCIN IV PER PHARMACY 1 EACH MISC MISCELLANE PRN (22:48)
--- NOTE | 2018-04-05 22:49 | CT ---
EXAMINATION TYPE: CT pelvis w con DATE OF EXAM: 04/05/2018 COMPARISON: 02/04/2017 HISTORY: non-healing abscess to right groin CT DLP: 696.4 mGycm Automated exposure control for dose reduction was used. CONTRAST: Performed with IV Contrast, patient injected with 100 mL of Isovue 300. FINDINGS: There is a 3.7 x 2.6 x 6 cm fluid collection in the subcutaneous tissues posterior to the right labia majora consistent with an abscess. There is surrounding fat stranding. The bladder distends smoothly. Hysterectomy is noted. There is no free fluid in the pelvis. I see no intestinal wall thickening. There are no dilated loops. There is 1 mm calculus lower pole right kidne y. There is no sign of free air. I see no bony destructive process. There is metal artifact from post erior fusion surgery at L4-5. There is a few millimeter anterior subluxation of L4 in relation L5. Th ere is no compression fracture. The bony pelvis appears intact. IMPRESSION: SUBCUTANEOUS FLUID ON THE RIGHT SIDE ABOVE CONSISTENT WITH ABSCESS. THIS APPEARS NEW COMPARED TO O LD CT SCAN 02/04/2017.
[2018-04-05] MEDS ORDERED: NALOXONE 0.4 MG/ML 1 ML VIAL IV PRN (23:16)
[2018-04-05] MEDS ORDERED: ONDANSETRON 4 MG/2 ML VIAL IVP PRN (23:16)
[2018-04-05] MEDS ORDERED: HYDROmorphone 1 MG/ML 1 ML SYRINGE IVP PRN (23:16)
[2018-04-06] MEDS ORDERED: VANCOMYCIN 1,500 MG in SODIUM CHLORIDE 0.9% 250 ML IVPB SCH ×2
[2018-04-06] MEDS ORDERED: SODIUM CHLORIDE 0.9% 1,000 ML IV STA (00:38)
[2018-04-06 00:58] VITALS: BMI 33.0
[2018-04-06] MEDS: NICOTINE 14MG/24HR PATCH TRANSDERM SCH (02:11)
[2018-04-06] MEDS: ACETAMINOPHEN TAB 325 MG TAB PO PRN ×3 (02:12→17:49)
[2018-04-06] MEDS: HYDROmorphone 1 MG/ML 1 ML SYRINGE IVP PRN ×7 (02:13→21:49)
[2018-04-06] MEDS: PIPERACILLIN-TAZOBACTAM 3.375 GM in DEXTROSE/WATER 1 50ML.BAG IVPB SCH ×3 (06:52→23:14)
--- NOTE | 2018-04-06 09:56 | P.GSHP ---
<Julieta Oviedo - Last Filed: 04/06/18 09:39> History of Present Illness H&P Date: 04/06/18 47 show female was referred to the emergency room by her PCP to be evaluated for pain in the right gluteal region. Patient stated she noted pain in the right gluteal region several weeks ago normally she has had this happen in the past would rupture on their own patient states that she has had prior episodes happen several times in the past usually resolve on their own She states she' s never had these drained. Reports that the area starts to drain several days ago she went to squeeze it on her own but could not get any drainage out the pain was excruciating she noted that the swelling to the gluteal on the right had increased significantly. Stated it hurt to urinate move her bowels are any movement caused pain stated she became concerned the pain was unbearable with increased swelling to the right gluteal with positive tenderness continued to persist she went to her PCP and was referred to the emergency room In the emergency room computed tomography scan of the pelvis with contrast report reviewed show subcutaneous fluid on the right side consistent with an abscess. Fluid collection measured 3 0.7 by 6 cm in the posterior right labia majora consistent with an abscess white count on admission 15.6 - Review of Systems Comment: Essentially unremarkable except as mentioned in the present illness Past Medical History Additional Past Medical History / Comment(s): IBS, chronic back pain History of Any Multi-Drug Resistant Organisms: MRSA Date of last positivie culture/infection: 2009 MDRO Source:: nose Past Surgical History: Back Surgery, Hysterectomy, Orthopedic Surgery, Tubal Ligation Additional Past Surgical History / Comment(s): left shoulder, lumbar back x3 surgeries. oopherectomy. Right foot bunionectomy x2 Past Anesthesia/Blood Transfusion Reactions: No Reported Reaction Past Psychological History: No Psychological Hx Reported Smoking Status: Current every day smoker Past Alcohol Use History: Rare Past Drug Use History: Marijuana - Past Family History Mother Family Medical History: Deep Vein Thrombosis (DVT) Medications and Allergies Home Medications Medication Instructions Recorded Confirmed Type Gabapentin 800 mg PO QID 10/13/16 04/05/18 History Phentermine HCl [Adipex-P] 37.5 mg PO QAM 10/13/16 04/05/18 History oxyCODONE HCL [Roxicodone] 30 mg PO QID 10/13/16 04/05/18 History traMADol HCL [Ultram] 50 mg PO TID 10/13/16 04/05/18 History Ibuprofen [Motrin] 800 mg PO TID PRN 02/04/17 04/06/18 History Omeprazole 40 mg PO DAILY 04/05/18 04/05/18 History Allergies Allergy/AdvReac Type Severity Reaction Status Date / Time morphine Allergy Rash/Hives Verified 04/06/18 01:23 Sulfa (Sulfonamide Allergy Rash/Hives Verified 04/06/18 01:23 Antibiotics) Surgical - Exam Vital Signs Temp Pulse Resp BP Pulse Ox 98.9 F 103 H 20 125/70 98 04/05/18 20:48 04/05/18 20:48 04/05/18 20:48 04/05/18 20:48 04/05/18 20:48 GENERAL APPEARANCE: 47-year-old female patient is alert, resting in bed reports having pain in the right gluteal area positive tenderness VITAL SIGNS: Reviewed HEENT: Head is normocephalic and atraumatic. Pupils are equal and reactive. The nares are patent. Oropharynx is clear without lesions. NECK: Supple without lymphadenopathy. Traches midline. HEART: S1, S2. Regular rate and rhythm. No murmur noted adequate air movement bilaterally LUNGS: No crackles or wheezes are heard. ABDOMEN: Soft, nontender, nondistended with good bowel sounds. No peritoneal signs. No palpable organomegaly or masses. EXTREMITIES: Normal skin color and turgor. No cyanosis, rash, ulceration, clubbing or edema. Radial pedal pulses are 2/4 bilaterally. NEUROLOGICAL: No focal deficits. Strength and sensation are grossly intact. GI right lower buttocks labia there is a significant amount of tenderness firm with erythematous no active drainage noted area approximately 3 x 6cm Results - Labs 04/05/18 21:30 04/05/18 21:30 Abnormal Lab Results - Last 24 Hours (Table) 04/05/18 04/05/18 Range/Units 21:30 21:30 WBC 15.6 H (3.8-10.6) k/uL Neutrophils # 11.4 H (1.3-7.7) k/uL Creatinine 0.48 L (0.52-1.04) mg/dL Glucose 111 H (74-99) mg/dL Diabetes panel 10/17/18 Range/Units 21:30 Sodium 138 (137-145) mmol/L Potassium 5.0 (3.5-5.1) mmol/L Chloride 104 (98-107) mmol/L Carbon Dioxide 24 (22-30) mmol/L BUN 17 (7-17) mg/dL Creatinine 0.48 L (0.52-1.04) mg/dL Glucose 111 H (74-99) mg/dL Calcium 9.4 (8.4-10.2) mg/dL Calcium panel 04/05/18 Range/Units 21:30 Calcium 9.4 (8.4-10.2) mg/dL Pituitary panel 04/05/18 Range/Units 21:30 Sodium 138 (137-145) mmol/L Potassium 5.0 (3.5-5.1) mmol/L Chloride 104 (98-107) mmol/L Carbon Dioxide 24 (22-30) mmol/L BUN 17 (7-17) mg/dL Creatinine 0.48 L (0.52-1.04) mg/dL Glucose 111 H (74-99) mg/dL Calcium 9.4 (8.4-10.2) mg/dL Adrenal panel 04/05/18 Range/Units 21:30 Sodium 138 (137-145) mmol/L Potassium 5.0 (3.5-5.1) mmol/L Chloride 104 (98-107) mmol/L Carbon Dioxide 24 (22-30) mmol/L BUN 17 (7-17) mg/dL Creatinine 0.48 L (0.52-1.04) mg/dL Glucose 111 H (74-99) mg/dL Calcium 9.4 (8.4-10.2) mg/dL Assessment and Plan Assessment: Impression Present on admission right labia majora tenderness swelling redness suspect due to an abscess CAT scan the pelvis show 3 x 6 fluid collection subcutaneous tissue posterior labia majora consistent with an abscess Present on admission leukocytosis Chronic pain opiate dependent History of reoccurring labia abscess in the past self-limiting no treatment Active current every day smoker Plan Pain control Will be scheduled Today for an incision and drainage of a perirectal abscess in the operating room Continue IV Zosyn and vancomycin as ordered DVT and GI prophylaxis Keep nothing by mouth The above impression and plan of care have been discussed and directed by signing physician. Julieta Oviedo nurse practitioner acting as scribe for signing physician. <Dinh Abdi - Last Filed: 04/06/18 12:33> Surgical - Exam Vital Signs Temp Pulse Resp BP Pulse Ox 98.9 F 103 H 20 125/70 98 04/05/18 20:48 04/05/18 20:48 04/05/18 20:48 04/05/18 20:48 04/05/18 20:48 Results - Labs 04/06/18 10:27 04/06/18 10:27 Abnormal Lab Results - Last 24 Hours (Table) 04/05/18 04/05/18 04/06/18 Range/Units 21:30 21:30 10:27 WBC 15.6 H 16.7 H (3.8-10.6) k/uL MCV 100.3 H (80.0-100.0) fL Neutrophils # 11.4 H 11.9 H (1.3-7.7) k/uL Creatinine 0.48 L (0.52-1.04) mg/dL Glucose 111 H (74-99) mg/dL Total Protein (6.3-8.2) g/dL Albumin (3.5-5.0) g/dL 04/06/18 Range/Units 10:27 WBC (3.8-10.6) k/uL MCV (80.0-100.0) fL Neutrophils # (1.3-7.7) k/uL Creatinine (0.52-1.04) mg/dL Glucose (74-99) mg/dL Total Protein 6.2 L (6.3-8.2) g/dL Albumin 3.3 L (3.5-5.0) g/dL Diabetes panel 04/05/18 04/06/18 Range/Units 21:30 10:27 Sodium 138 138 (137-145) mmol/L Potassium 5.0 4.4 (3.5-5.1) mmol/L Chloride 104 105 (98-107) mmol/L Carbon Dioxide 24 29 (22-30) mmol/L BUN 17 13 (7-17) mg/dL Creatinine 0.48 L 0.56 (0.52-1.04) mg/dL Glucose 111 H 95 (74-99) mg/dL Calcium 9.4 9.3 (8.4-10.2) mg/dL AST 17 (14-36) U/L ALT 26 (9-52) U/L Alkaline Phosphatase 86 (38-126) U/L Total Protein 6.2 L (6.3-8.2) g/dL Albumin 3.3 L (3.5-5.0) g/dL Calcium panel 04/05/18 04/06/18 Range/Units 21:30 10:27 Calcium 9.4 9.3 (8.4-10.2) mg/dL Albumin 3.3 L (3.5-5.0) g/dL Pituitary panel 04/05/18 04/06/18 Range/Units 21:30 10:27 Sodium 138 138 (137-145) mmol/L Potassium 5.0 4.4 (3.5-5.1) mmol/L Chloride 104 105 (98-107) mmol/L Carbon Dioxide 24 29 (22-30) mmol/L BUN 17 13 (7-17) mg/dL Creatinine 0.48 L 0.56 (0.52-1.04) mg/dL Glucose 111 H 95 (74-99) mg/dL Calcium 9.4 9.3 (8.4-10.2) mg/dL Adrenal panel 04/05/18 04/06/18 Range/Units 21:30 10:27 Sodium 138 138 (137-145) mmol/L Potassium 5.0 4.4 (3.5-5.1) mmol/L Chloride 104 105 (98-107) mmol/L Carbon Dioxide 24 29 (22-30) mmol/L BUN 17 13 (7-17) mg/dL Creatinine 0.48 L 0.56 (0.52-1.04) mg/dL Glucose 111 H 95 (74-99) mg/dL Calcium 9.4 9.3 (8.4-10.2) mg/dL Total Bilirubin 0.9 (0.2-1.3) mg/dL AST 17 (14-36) U/L ALT 26 (9-52) U/L Alkaline Phosphatase 86 (38-126) U/L Total Protein 6.2 L (6.3-8.2) g/dL Albumin 3.3 L (3.5-5.0) g/dL Assessment and Plan Plan: gloria Rectal abscess. We'll perform incision and drainage.
[2018-04-06] MEDS: VANCOMYCIN 1,500 MG in SODIUM CHLORIDE 0.9% 250 ML IVPB SCH ×2 (10:04→18:01)
[2018-04-06 10:57] LABS: Basophils # (A) 0.1 k/uL (0-0.2); Basophils % (A) 1 %; Eosinophils # (A) 0.2 k/uL (0-0.7); Eosinophils % (A) 1 %; HCT 45.7 % (34.0-46.0); HGB 14.6 gm/dL (11.4-16.0); Lymphocytes # (A) 3.2 k/uL (1.0-4.8); Lymphocytes % (A) 19 %; MCHC 31.9 g/dL (31.0-37.0); MCV 100.3 fL (80.0-100.0); Mean Platelet Volume 7.6; Monocytes % (A) 6 %; Neutrophils # (A) 11.9 k/uL (1.3-7.7); Neutrophils % (A) 71 %; Platelet Count 354 k/uL (150-450); RBC 4.55 m/uL (3.80-5.40); RDW 12.9 % (11.5-15.5); WBC 16.7 k/uL (3.8-10.6)
[2018-04-06 11:07] LABS: ALT 26 U/L (9-52); AST 17 U/L (14-36); Albumin 3.3 g/dL (3.5-5.0); Alkaline Phosphatase 86 U/L (38-126); Anion Gap 4 mmol/L; Blood Urea Nitrogen 13 mg/dL (7-17); Calcium 9.3 mg/dL (8.4-10.2); Carbon Dioxide 29 mmol/L (22-30); Chloride 105 mmol/L (98-107); Glucose 95 mg/dL (74-99); Potassium 4.4 mmol/L (3.5-5.1); Sodium 138 mmol/L (137-145); Total Bilirubin 0.9 mg/dL (0.2-1.3); Total Protein 6.2 g/dL (6.3-8.2)
[2018-04-06] MEDS ORDERED: HYDROmorphone 1 MG/ML 1 ML SYRINGE IVP PRN (11:35)
[2018-04-06] MEDS ORDERED: GABAPENTIN 400 MG CAP PO SCH (11:45)
[2018-04-06] MEDS ORDERED: ACETAMINOPHEN IV (For NPO) 1,000 MG in EMPTY BAG 1 BAG IVPB ONE (12:00)
[2018-04-06] MEDS ORDERED: IV FLUID CONTINUATION 1,000 ML IV ONE ×2 (12:48)
[2018-04-06] MEDS ORDERED: HEPARIN SODIUM,PORCINE 5,000 UNIT/ML 1 ML VIAL SQ ONE (12:49)
[2018-04-06] MEDS ORDERED: KETAMINE 10 MG/ML 20 ML VIAL ONE (13:06)
[2018-04-06] MEDS ORDERED: fentaNYL (PF) 50 MCG/ML 2 ML AMP ONE (13:06)
[2018-04-06] MEDS ORDERED: MIDAZOLAM 2 MG/2 ML VIAL ONE (13:06)
[2018-04-06] MEDS ORDERED: PROPOFOL 10 MG/ML 20 ML VIAL IV ONE (13:06)
[2018-04-06] MEDS ORDERED: ACETAMINOPHEN IV (For NPO) 1,000 MG/100 ML VIAL ONE (13:06)
[2018-04-06] MEDS ORDERED: LIDOCAINE 1% INJ 10MG/ML (20 ML MDV) ONE (13:06)
[2018-04-06] MEDS ORDERED: BUPIVACAIN-EPI 0.25%-1:200,000 30 ML VIAL SQ ONE (13:22)
[2018-04-06] MEDS ORDERED: LACTATED RINGERS 1,000 ML IV ONE (13:30)
--- NOTE | 2018-04-06 13:36 | P.OP ---
Date of Procedure: 04/06/18 Preoperative Diagnosis: Right perirectal abscess Postoperative Diagnosis: Right perirectal abscess Procedure(s) Performed: Incision and drainage of right perirectal abscess Anesthesia: MAC Surgeon: Dinh Abdi Estimated Blood Loss (ml): 5 Pathology: other (Culture) Condition: stable Disposition: PACU Description of Procedure: The patient's placed the operative table in the lithotomy position. She received general anesthesia. Her perineum was prepped and draped usual sterile fashion. The patient had a right perirectal abscess. Incision drainage was performed. Approximately 20 mL of purulent fluid was removed from the abscess cavity. The abscess cavity was then packed using wet-to-dry Kerlix dressing patient top procedure well and was sent to recovery in stable condition
[2018-04-06] MEDS: traMADol 50 MG TAB PO SCH ×2 (17:43→23:14)
[2018-04-06] MEDS: GABAPENTIN 400 MG CAP PO SCH ×2 (17:44→21:49)
[2018-04-06] MEDS: SODIUM CHLORIDE 0.9% 1,000 ML IV SCH (17:55)
[2018-04-07] MEDS: HYDROmorphone 1 MG/ML 1 ML SYRINGE IVP PRN ×7 (00:06→14:51)
[2018-04-07] MEDS: VANCOMYCIN 1,500 MG in SODIUM CHLORIDE 0.9% 250 ML IVPB SCH ×2 (02:34→10:27)
[2018-04-07] MEDS: SODIUM CHLORIDE 0.9% 1,000 ML IV SCH ×2 (04:22→10:18)
[2018-04-07] MEDS: PIPERACILLIN-TAZOBACTAM 3.375 GM in DEXTROSE/WATER 1 50ML.BAG IVPB SCH ×2 (06:26→15:18)
[2018-04-07] MEDS: NICOTINE 14MG/24HR PATCH TRANSDERM SCH (08:33)
[2018-04-07] MEDS: traMADol 50 MG TAB PO SCH ×2 (08:35→16:39)
[2018-04-07] MEDS: GABAPENTIN 400 MG CAP PO SCH ×2 (08:35→12:53)
--- NOTE | 2018-04-07 08:37 | P.CONS ---
History of Present Illness - Reason for Consult Consult date: 04/07/18 Medical management - Chief Complaint Perirectal abscess - History of Present Illness This is a 47-year-old female with past medical history significant for chronic back pain with prior back surgery who presented to the emergency room with a right groin pain. Patient was evaluated and was found to have a perirectal abscess with what was described as fluid collection subcutaneous tissue posterior to the right labia majora. Patient was evaluated by general surgery and was taken to the OR for I&D. She is postoperative day #1. She is maintained on broad-spectrum antibiotic. Patient herself does not have any specific concerns or complaints. I was asked to see her for medical management. Review of Systems Review of system: 14 points review of systems were obtained and were negative except to what were mentioned in the HPI. Past Medical History Additional Past Medical History / Comment(s): IBS, chronic back pain History of Any Multi-Drug Resistant Organisms: MRSA Year Discovered:: 2009 MDRO Source:: nose Past Surgical History: Back Surgery, Hysterectomy, Orthopedic Surgery, Tubal Ligation Additional Past Surgical History / Comment(s): left shoulder, lumbar back x3 surgeries. oopherectomy. Right foot bunionectomy x2 Past Anesthesia/Blood Transfusion Reactions: No Reported Reaction Past Psychological History: No Psychological Hx Reported Smoking Status: Current every day smoker Past Alcohol Use History: Rare Past Drug Use History: Marijuana - Past Family History Mother Family Medical History: Deep Vein Thrombosis (DVT) Medications and Allergies Home Medications Medication Instructions Recorded Confirmed Type Gabapentin 800 mg PO QID 10/13/16 04/05/18 History Phentermine HCl [Adipex-P] 37.5 mg PO QAM 10/13/16 04/05/18 History oxyCODONE HCL [Roxicodone] 30 mg PO QID 10/13/16 04/05/18 History traMADol HCL [Ultram] 50 mg PO TID 10/13/16 04/05/18 History Ibuprofen [Motrin] 800 mg PO TID PRN 02/04/17 04/06/18 History Omeprazole 40 mg PO DAILY 04/05/18 04/05/18 History Allergies Allergy/AdvReac Type Severity Reaction Status Date / Time morphine Allergy Rash/Hives Verified 04/06/18 01:23 Sulfa (Sulfonamide Allergy Rash/Hives Verified 04/06/18 01:23 Antibiotics) Physical Exam Vitals: Vital Signs Temp Pulse Pulse Resp BP Pulse Ox 04/07/18 00:00 98.2 F 86 18 107/68 97 04/06/18 18:44 98.4 F 110 H 16 125/80 97 04/06/18 17:20 109 H 16 119/70 95 04/06/18 16:20 107 H 18 98/71 96 04/06/18 15:50 95 15 129/66 95 04/06/18 15:20 96 16 121/70 94 L 04/06/18 15:05 92 16 138/70 94 L 04/06/18 14:50 94 13 122/74 92 L 04/06/18 14:35 97.1 F L 87 12 116/50 94 L 04/06/18 14:09 85 16 130/65 99 04/06/18 13:54 92 16 138/62 100 04/06/18 13:39 97.8 F 99 22 140/61 99 04/06/18 12:46 98.8 F 88 16 132/62 96 04/06/18 12:10 97.7 F 84 14 159/70 96 04/06/18 12:08 97.7 F 84 16 139/74 Intake and Output 04/06/18 04/07/18 04/07/18 22:59 06:59 14:59 Intake Total 840 Balance 840 Intake: Oral 840 Other: # Voids 1 2 General: The patient is awake and alert, in no distress Eye: there is normal conjunctiva bilaterally. Neck: The neck is supple, there is no JVD. Cardiovascular: Normal S1-S2, no S3-S4, no murmurs. Respiratory: Lungs clear to auscultation bilaterally Gastrointestinal: Abdomen is soft, nontender Musculoskeletal: There is no pedal edema. Neurological:. Speech is normal. Skin: Skin is warm and dry Results CBC & Chem 7: 04/06/18 10:27 04/06/18 10:27 Labs: Abnormal Lab Results - Last 24 Hours (Table) 04/06/18 04/06/18 Range/Units 10:27 10:27 WBC 16.7 H (3.8-10.6) k/uL MCV 100.3 H (80.0-100.0) fL Neutrophils # 11.9 H (1.3-7.7) k/uL Total Protein 6.2 L (6.3-8.2) g/dL Albumin 3.3 L (3.5-5.0) g/dL Microbiology - Last 24 Hours (Table) 04/06/18 13:33 Gram Stain - Preliminary Rectum Wound Culture - Preliminary 04/05/18 21:30 Blood Culture - Preliminary Blood No Growth after 24 hours 04/06/18 13:33 Anaerobic Culture - Preliminary Rectum Assessment and Plan Assessment: 1. Perirectal abscess, status post I&D by general surgery. Currently maintained on broad-spectrum antibiotic management and infectious disease. Pain is well controlled. IV fluid hydration. Awaiting culture results to finalize. 2. Chronic back pain with prior back surgery, pain is currently well controlled 3. DVT prophylaxis as well as subcu heparin 4. Tobacco abuse: Counseled extensively to quit. Nicotine patch ordered. 5. Leukocytosis, secondary to underlying infection Today, I reviewed her medication list and lab work results. Continue current regimen. Thank you very much for the consultation. We will continue to follow up on the patient with you closely.
[2018-04-07] MEDS ORDERED: HEPARIN SODIUM,PORCINE 5,000 UNIT/ML 1 ML VIAL SQ SCH (09:00)
[2018-04-07 09:02] VITALS: PULSE 87
--- NOTE | 2018-04-07 12:29 | P.DS ---
Providers Date of admission: 04/05/18 23:27 Expected date of discharge: 04/07/18 Attending physician: Dinh Abdi Consults: 04/06/18 09:38 Consult Physician Urgent Consulting Provider: Xin Navarrete Consult Reason/Comments: med mtg Do you want consulting provider notified?: Yes 04/06/18 13:36 Consult Physician Routine Consulting Provider: Danny Roman Consult Reason/Comments: Perirectal abscess, wound care Do you want consulting provider notified?: Yes Consult Physician Routine Consulting Provider: Melchor Marcos Consult Reason/Comments: Medical management Do you want consulting provider notified?: Yes Primary care physician: Roger Peoples [facility] Course: 47 year old female presented on the day of admission to the emergency room for right gluteal pain radiating into the groin. Patient stated been ongoing for several weeks. Patient states that she has had this in the past would rupture on their 0wn In the emergency room computed tomography scan of the pelvis with contrast report reviewed show subcutaneous fluid on the right side consistent with an abscess. Fluid collection measured 3 0.7 by 6 cm in the posterior right labia majora consistent with an abscess white count on admission 15.6 patient was started on IV antibiotics - Incision and drainage of right perirectal abscess was done on April 06 On the day of discharge patient was felt to be hemodynamically stable and appropriate proceed with a discharge to home. Home care was set up for patient. Patient was to use wet-to-dry Kerlix dressing changed daily and as needed. Impression Present on admission right labia majora tenderness swelling redness suspect due to an abscess CAT scan the pelvis show 3 x 6 fluid collection subcutaneous tissue posterior labia majora consistent with an abscess Present on admission leukocytosis Chronic pain opiate dependent History of reoccurring labia abscess in the past self-limiting no treatment Active current every day smoker Status post incision and drainage of right perirectal abscess done April 06 Patient Condition at Discharge: Fair Plan - Discharge Summary Discharge Rx Participant: Yes New Discharge Prescriptions: New Levofloxacin [Levaquin] 500 mg PO DAILY #7 tab metroNIDAZOLE [Flagyl] 500 mg PO QID #28 tab Continue traMADol HCL [Ultram] 50 mg PO TID oxyCODONE HCL [Roxicodone] 30 mg PO QID Phentermine HCl [Adipex-P] 37.5 mg PO QAM Gabapentin 800 mg PO QID Ibuprofen [Motrin] 800 mg PO TID PRN PRN Reason: Pain Omeprazole 40 mg PO DAILY Discharge Medication List Gabapentin 800 mg PO QID 10/13/16 [History] Phentermine HCl [Adipex-P] 37.5 mg PO QAM 10/13/16 [History] oxyCODONE HCL [Roxicodone] 30 mg PO QID 10/13/16 [History] traMADol HCL [Ultram] 50 mg PO TID 10/13/16 [History] Ibuprofen [Motrin] 800 mg PO TID PRN 02/04/17 [History] Omeprazole 40 mg PO DAILY 04/05/18 [History] Levofloxacin [Levaquin] 500 mg PO DAILY #7 tab 04/07/18 [Rx] metroNIDAZOLE [Flagyl] 500 mg PO QID #28 tab 04/07/18 [Rx] Follow up Appointment(s)/Referral(s): Roger Weber MD [Primary Care Provider] - 1-2 days Danny Roman MD [STAFF PHYSICIAN] - 1 Week Dinh Abdi MD [STAFF PHYSICIAN] - 1 Week Activity/Diet/Wound Care/Special Instructions: Tub bath daily Do not soak in a tub Wet-to-dry plain iodoform packing to surgical site change daily Follow-up with infectious disease Dr. Roman next week Discharge Disposition: HOME WITH HOME HEALTH SERVICES
[2018-04-07 13:57] VITALS: BP 123/75; RESP 19; TEMP 98.2
[2018-04-07] MEDS ORDERED: VANCOMYCIN TROUGH DUE 1 EACH MISC MISCELLANE ONE (17:00)
== END 2018-04-07 17:31 | disposition home health service (06) | DRG 345 ==
LOC: EC 20:35 → 6PED 23:27
PROVIDERS: ADMIT Surgery; ATTEND Surgery
PROC: 0D9P0ZX Drainage of Rectum, Open Approach, Diagnostic (ICD-10-PCS; principal; 2018-04-05)
DX: K61.1 Rectal abscess (principal); F11.20 Opioid dependence, uncomplicated; G89.29 Other chronic pain; M54.9 Dorsalgia, unspecified; K58.9 Irritable bowel syndrome, unspecified; F17.200 Nicotine dependence, unspecified, uncomplicated; Z71.6 Tobacco abuse counseling; Z86.14 Personal history of Methicillin resistant Staphylococcus aureus infection; Z79.899 Other long term (current) drug therapy; Z90.710 Acquired absence of both cervix and uterus; Z98.51 Tubal ligation status; Z88.5 Allergy status to narcotic agent; Z88.2 Allergy status to sulfonamides; Z83.2 Family history of diseases of the blood and blood-forming organs and certain disorders involving the immune mechanism
CPT/HCPCS: 36415; 72193; 80048; 80053; 81025; 83605; 85025; 85610; 85730; 87040; 87070; 87075; 87205; 96365; 96375; 96376; 99284

== ENCOUNTER 2019-10-31 05:30 | Emergency (ER) | payer MEDICARE, OTHER ==
[2019-10-31] MEDS ORDERED: KETOROLAC 30 MG/ML 1 ML VIAL IVP STA (06:20)
--- NOTE | 2019-10-31 06:25 | ED ---
General Adult HPI - General Source: patient, EMS, RN notes reviewed Mode of arrival: EMS Limitations: no limitations <Job Adames - Last Filed: 10/31/19 08:46> <Yoselin Short - Last Filed: 10/31/19 22:21> - General Chief complaint: Back Pain/Injury Stated complaint: Back pain Time Seen by Provider: 10/31/19 06:01 - History of Present Illness Initial comments: 49-year-old female with a past medical history chronic back pain presents to the emergency department for a chief complaint of back and chest pain. Patient states that yesterday she was carrying her granddaughter down the stairs. States that shortly afterwards she started to feel like her chronic back pain. States this usually starts in her thoracic spine area given that she has 3 herniated disks in this area. States that throughout the course of the day it radiated around to her left armpit and left neck. Patient states she could not turn her neck all the way to the right because of the pain. States that because it was radiating and it does not normally do this she became concerned. She denies weakness, numbness in any extremities. Denies blood or bowel changes. Patient states she took her daily pain medications which include oxycodone, tramadol, gabapentin and this did help. Patient has no other complaints at this time including shortness of breath, abdominal pain, nausea or vomiting, headache, or visual changes. (Job Adames) - Related Data Home Medications Medication Instructions Recorded Confirmed Gabapentin 800 mg PO QID 10/13/16 04/05/18 Phentermine HCl [Adipex-P] 37.5 mg PO QAM 10/13/16 04/05/18 oxyCODONE HCL [Roxicodone] 30 mg PO QID 10/13/16 04/05/18 traMADol HCL [Ultram] 50 mg PO TID 10/13/16 04/05/18 Ibuprofen [Motrin] 800 mg PO TID PRN 02/04/17 04/06/18 Omeprazole 40 mg PO DAILY 04/05/18 04/05/18 Previous Rx's Medication Instructions Recorded Levofloxacin [Levaquin] 500 mg PO DAILY #7 tab 04/07/18 metroNIDAZOLE [Flagyl] 500 mg PO QID #28 tab 10/19/18 Allergies Allergy/AdvReac Type Severity Reaction Status Date / Time morphine Allergy Rash/Hives Verified 10/31/19 05:36 Sulfa (Sulfonamide Allergy Rash/Hives Verified 10/31/19 05:36 Antibiotics) Review of Systems ROS Other: All systems not noted in ROS Statement are negative. <RosangelaJob P - Last Filed: 10/31/19 08:46> ROS Other: All systems not noted in ROS Statement are negative. <GeoffYoselin mena A - Last Filed: 10/31/19 22:21> ROS Statement: Those systems with pertinent positive or pertinent negative responses have been documented in the HPI. Past Medical History Additional Past Medical History / Comment(s): IBS, chronic back pain History of Any Multi-Drug Resistant Organisms: MRSA Date of last positivie culture/infection: 2009 MDRO Source:: nose Past Surgical History: Back Surgery, Hysterectomy, Orthopedic Surgery, Tubal Ligation Additional Past Surgical History / Comment(s): left shoulder, lumbar back x3 surgeries. oopherectomy. Right foot bunionectomy x2 Past Anesthesia/Blood Transfusion Reactions: No Reported Reaction Past Psychological History: No Psychological Hx Reported Smoking Status: Current every day smoker Past Alcohol Use History: Rare Past Drug Use History: Marijuana - Past Family History Mother Family Medical History: Deep Vein Thrombosis (DVT) <Job Adames P - Last Filed: 10/31/19 08:46> General Exam Limitations: no limitations General appearance: alert, in no apparent distress Head exam: Present: atraumatic, normocephalic, normal inspection Eye exam: Present: normal appearance, PERRL, EOMI. Absent: scleral icterus, conjunctival injection, periorbital swelling ENT exam: Present: normal exam, mucous membranes moist Neck exam: Present: normal inspection, full ROM. Absent: tenderness, meningismus, lymphadenopathy Respiratory exam: Present: normal lung sounds bilaterally. Absent: respiratory distress, wheezes, rales, rhonchi, stridor Cardiovascular Exam: Present: regular rate, normal rhythm, normal heart sounds. Absent: systolic murmur, diastolic murmur, rubs, gallop, clicks GI/Abdominal exam: Present: soft, normal bowel sounds. Absent: distended, tenderness, guarding, rebound, rigid Back exam: Present: paraspinal tenderness (L paraspinal reproducible tenderness.). Absent: CVA tenderness (R), CVA tenderness (L) Neurological exam: Present: alert <Job Adames - Last Filed: 10/31/19 08:46> Course Vital Signs 10/31/19 10/31/19 10/31/19 05:32 06:00 06:30 Temperature 98.8 F Pulse Rate 80 99 90 Respiratory 16 18 16 Rate Blood Pressure 124/88 119/83 O2 Sat by Pulse 95 96 Oximetry 10/31/19 09:00 Temperature 98.5 F Pulse Rate 87 Respiratory 18 Rate Blood Pressure 116/67 O2 Sat by Pulse 97 Oximetry EKG Findings - EKG Comments: EKG Findings:: Normal sinus rhythm, ventricular rate 85, OR interval 146, QTC 430 <Job Adames - Last Filed: 10/31/19 08:46> Medical Decision Making - Lab Data Result diagrams: 10/31/19 06:26 10/31/19 06:26 <Job Adames - Last Filed: 10/31/19 08:46> - Lab Data Result diagrams: 10/31/19 06:26 10/31/19 06:26 <Yoselin Short - Last Filed: 10/31/19 22:21> - Medical Decision Making HPI and physical exam as documented. Vitals are stable. Patient has had an exacerbation of chronic pain that is radiating into the armpit in her neck. Pain is mechanical and reproducible on examination with both palpation and movement. Pain with turning her head to the right. I did obtain basic laboratory evaluation which was unremarkable. Troponin is negative. EKG shows a normal sinus rhythm. Chest x-ray shows segmental atelectasis at the lung bases. Developing infiltrate left lower lobe is difficult to exclude, correlate clinically. D-dimer is borderline at 0.51. Therefore CT chest was ordered which showed no evidence of PE. There is bibasilar atelectasis or infiltrates, correlate for developing pneumonia. Patient does not have cough or fever. This is not clinically relevant. Patient was given Toradol and did have improvement in pain. As discussed patient does take oxycodone, tramadol, gabapentin, and Motrin daily and will continue her home pain medications. She will follow up w ith primary care or her surgeon. She will return for any worsening symptoms. (Job Adames) I was available for consultation in the emergency department. The history and p hysical exam were done by the midlevel provider. I was consulted for this patients care. I reviewed the case with the midlevel provider and based on their presentation of the patient, I agree with the assessment, medical decision making and plan of care as documented. Chart was dictated using [employer]ze dictation software. Attempts were made to correct any dictation errors however some typographical errors may persist. Patient was seen during a national state of emergency due to the Covid-19 [place] demic. (Yoselin Short) - Lab Data Lab Results 10/31/19 10/31/19 10/31/19 Range/Units 06:26 06:26 06:26 WBC 12.3 H (3.8-10.6) k/uL RBC 4.36 (3.80-5.40) m/uL Hgb 13.7 (11.4-16.0) gm/dL Hct 41.8 (34.0-46.0) % MCV 95.8 (80.0-100.0) fL MCH 31.5 (25.0-35.0) pg MCHC 32.9 (31.0-37.0) g/dL RDW 13.4 (11.5-15.5) % Plt Count 329 (150-450) k/uL Neutrophils % 68 % Lymphocytes % 23 % Monocytes % 5 % Eosinophils % 2 % Basophils % 1 % Neutrophils # 8.4 H (1.3-7.7) k/uL Lymphocytes # 2.8 (1.0-4.8) k/uL Monocytes # 0.6 (0-1.0) k/uL Eosinophils # 0.2 (0-0.7) k/uL Basophils # 0.1 (0-0.2) k/uL PT 9.4 (9.0-12.0) sec INR 0.9 (<1.2) APTT 23.7 (22.0-30.0) sec D-Dimer (<0.60) mg/L FEU Sodium 134 L (137-145) mmol/L Potassium 4.7 (3.5-5.1) mmol/L Chloride 102 (98-107) mmol/L Carbon Dioxide 27 (22-30) mmol/L Anion Gap 5 mmol/L BUN 16 (7-17) mg/dL Creatinine 0.46 L (0.52-1.04) mg/dL Est GFR (CKD-EPI)AfAm >90 (>60 ml/min/1.73 sqM) Est GFR (CKD-EPI)NonAf >90 (>60 ml/min/1.73 sqM) Glucose 119 H (74-99) mg/dL Calcium 9.1 (8.4-10.2) mg/dL Magnesium 1.6 (1.6-2.3) mg/dL Total Bilirubin 0.5 (0.2-1.3) mg/dL AST 28 (14-36) U/L ALT 17 (4-34) U/L Alkaline Phosphatase 105 (38-126) U/L Troponin I (0.000-0.034) ng/mL Total Protein 7.1 (6.3-8.2) g/dL Albumin 3.9 (3.5-5.0) g/dL 10/31/19 10/31/19 Range/Units 06:26 06:26 WBC (3.8-10.6) k/uL RBC (3.80-5.40) m/uL Hgb (11.4-16.0) gm/dL Hct (34.0-46.0) % MCV (80.0-100.0) fL MCH (25.0-35.0) pg MCHC (31.0-37.0) g/dL RDW (11.5-15.5) % Plt Count (150-450) k/uL Neutrophils % % Lymphocytes % % Monocytes % % Eosinophils % % Basophils % % Neutrophils # (1.3-7.7) k/uL Lymphocytes # (1.0-4.8) k/uL Monocytes # (0-1.0) k/uL Eosinophils # (0-0.7) k/uL Basophils # (0-0.2) k/uL PT (9.0-12.0) sec INR (<1.2) APTT (22.0-30.0) sec D-Dimer 0.51 (<0.60) mg/L FEU Sodium (137-145) mmol/L Potassium (3.5-5.1) mmol/L Chloride (98-107) mmol/L Carbon Dioxide (22-30) mmol/L Anion Gap mmol/L BUN (7-17) mg/dL Creatinine (0.52-1.04) mg/dL Est GFR (CKD-EPI)AfAm (>60 ml/min/1.73 sqM) Est GFR (CKD-EPI)NonAf (>60 ml/min/1.73 sqM) Glucose (74-99) mg/dL Calcium (8.4-10.2) mg/dL Magnesium (1.6-2.3) mg/dL Total Bilirubin (0.2-1.3) mg/dL AST (14-36) U/L ALT (4-34) U/L Alkaline Phosphatase (38-126) U/L Troponin I <0.012 (0.000-0.034) ng/mL Total Protein (6.3-8.2) g/dL Albumin (3.5-5.0) g/dL Disposition Is patient prescribed a controlled substance at d/c from ED?: No Time of Disposition: 07:32 <Job Adames P - Last Filed: 10/31/19 08:46> <Yoselin Short - Last Filed: 10/31/19 22:21> Clinical Impression: Back pain Disposition: HOME SELF-CARE Condition: Good Instructions (If sedation given, give patient instructions): Acute Low Back Pain (ED) Additional Instructions: Please follow up with primary care in 1-2 days. Continue to take your home pain medications. Return to the emergency room for any worsening symptoms. Referrals: Roger Weber MD [Primary Care Provider] - 1-2 days
[2019-10-31 06:44] LABS: Basophils # (A) 0.1 k/uL (0-0.2); Basophils % (A) 1 %; Eosinophils # (A) 0.2 k/uL (0-0.7); Eosinophils % (A) 2 %; HCT 41.8 % (34.0-46.0); HGB 13.7 gm/dL (11.4-16.0); Lymphocytes # (A) 2.8 k/uL (1.0-4.8); Lymphocytes % (A) 23 %; MCH 31.5 pg (25.0-35.0); MCHC 32.9 g/dL (31.0-37.0); MCV 95.8 fL (80.0-100.0); Mean Platelet Volume 8.9; Monocytes # (A) 0.6 k/uL (0-1.0); Monocytes % (A) 5 %; Neutrophils # (A) 8.4 k/uL (1.3-7.7); Neutrophils % (A) 68 %; Platelet Count 329 k/uL (150-450); RBC 4.36 m/uL (3.80-5.40); RDW 13.4 % (11.5-15.5); WBC 12.3 k/uL (3.8-10.6)
[2019-10-31 06:47] LABS: ALT 17 U/L (4-34); AST 28 U/L (14-36); African American GFR (CKD) >90 (>60 ml/min/1.73 sqM); Albumin 3.9 g/dL (3.5-5.0); Alkaline Phosphatase 105 U/L (38-126); Anion Gap 5 mmol/L; Blood Urea Nitrogen 16 mg/dL (7-17); Calcium 9.1 mg/dL (8.4-10.2); Carbon Dioxide 27 mmol/L (22-30); Chloride 102 mmol/L (98-107); Glucose 119 mg/dL (74-99); INR 0.9 (<1.2); Magnesium 1.6 mg/dL (1.6-2.3); Non-African American GFR(CKD) >90 (>60 ml/min/1.73 sqM); Partial Thromboplastin Time 23.7 sec (22.0-30.0); Potassium 4.7 mmol/L (3.5-5.1); Prothrombin Time 9.4 sec (9.0-12.0); Sodium 134 mmol/L (137-145); Total Bilirubin 0.5 mg/dL (0.2-1.3); Total Protein 7.1 g/dL (6.3-8.2)
--- NOTE | 2019-10-31 07:09 | XR ---
EXAMINATION TYPE: XR chest 2V DATE OF EXAM: 10/31/2019 COMPARISON: NONE HISTORY: Chest pain TECHNIQUE: Frontal and lateral views of the chest are obtained. FINDINGS: Segmental atelectasis is seen at the lung bases. Developing infiltrate left lower lobe is difficult t o exclude. Correlate clinically. No evidence for pneumothorax. No pleural effusion. The cardiac silhouette size is within normal limits. The osseous structures are grossly intact. IMPRESSION: 1. Segmental atelectasis is seen at the lung bases. Developing infiltrate left lower lobe is difficu lt to exclude. Correlate clinically.
--- NOTE | 2019-10-31 08:27 | CT ---
EXAMINATION TYPE: CT chest angio for PE DATE OF EXAM: 10/31/2019 COMPARISON: None HISTORY: Back pain CT DLP: 340.1 mGycm CONTRAST: CT chest with contrast and 3D reconstruction with MIP imaging is performed with IV Contrast, patient injected with 90 mL of Isovue 370. Contrast-enhanced CT of the chest was performed through the course of the pulmonary arteries with ping g and mediastinal window settings submitted. 3D reconstruction with MIP imaging was also performed. PULMONARY ARTERIES: The pulmonary arteries and their major tributaries are patent. I do not see rayo dence for sizable filling defect to suggest pulmonary embolic process. LUNGS: Basilar atelectasis and/or infiltrates. Scattered groundglass infiltrates. Correlate for devel oping pneumonia. MEDIASTINUM: Thoracic aorta is of normal caliber. No evidence for aneurysm or dissection. The heart i s not enlarged. No evidence for mediastinal mass. No mediastinal lymph nodes greater than 1cm. HILAR STRUCTURES: No evidence for mass. No hilar lymph nodes greater than 1 cm. UPPER ABDOMEN: No significant abnormality is seen. IMPRESSION: 1. No evidence for Pulmonary embolism at this time. 2.Basilar atelectasis and/or infiltrates. Scattered groundglass infiltrates. Correlate for developing pneumonia.
[2019-10-31 09:02] VITALS: BP 116/67; PULSE 87; RESP 18; TEMP 98.5
== END 2019-10-31 09:04 | disposition home or self-care (01) ==
LOC: EC 05:30
DX: M54.9 Dorsalgia, unspecified (principal); R07.9 Chest pain, unspecified; J98.11 Atelectasis; F17.200 Nicotine dependence, unspecified, uncomplicated; Z79.899 Other long term (current) drug therapy; Z88.5 Allergy status to narcotic agent; Z88.2 Allergy status to sulfonamides
CPT/HCPCS: 36415; 93005; 85379; 80053; 83735; 84484; 85025; 85610; 85730; 71046; 71275; 99285; 96374; J1885; Q9967

== ENCOUNTER → 2021-08-12 | Outpatient (CLI) | payer MEDICARE, OTHER ==
[2021-08-12 22:59] LABS: Albumin 4.1 g/dL (3.8-4.9)
[2021-08-12 23:00] LABS: African American GFR (CKD) 99.6 (60.0-200.0); Anion Gap 9.9 mmol/L (10.00-18.00); BUN/Creat Ratio 19.75 Ratio (12.00-20.00); Blood Urea Nitrogen 15.8 mg/dL (9.0-27.0); Calcium 9.4 mg/dL (8.7-10.3); Carbon Dioxide 28.1 mmol/L (20.0-27.5); Potassium 3.8 mmol/L (3.5-5.5)
[2021-08-12 23:10] LABS: HCT 40.4 % (37.2-46.3); HGB 13.4 g/dL (12.0-15.0); MCH 31.3 pg (27.0-32.0); MCHC 33.2 g/dL (32.0-37.0); MCV 94.4 fL (80.0-97.0); Mean Platelet Volume 11.5 fL (9.5-12.2); NRBC Per 100 WBC 0 /100 WBCS (0.0-0.0); Platelet Count 394 X 10*3/uL (140-440); RBC 4.28 X 10*6/uL (4.10-5.20); RDW 12.7 % (11.5-14.5); WBC 11.28 X 10*3/uL (4.50-10.00)
[2021-08-13 00:11] LABS: Basophils # (M) 0.11 X 10*3/uL (0.00-0.10); Eosinophils # (M) 0.79 X 10*3/uL (0.04-0.35); Lymphocytes # (M) 5.98 X 10*3/uL (0.90-5.00); Monocytes # (M) 0.34 X 10*3/uL (0.20-1.00); Neutrophils # (M) 4.06 X 10*3/uL (2.00-8.90); Neutrophils % (M) 36 %
== END | disposition home or self-care (01) ==
LOC: LABWHC1 16:06
PROVIDERS: ATTEND Physician Assistant
DX: Z01.89 Encounter for other specified special examinations (principal)
CPT/HCPCS: 36415; 80048; 82040; 83036; 85025; 87070

== ENCOUNTER 2022-06-04 16:07 | Emergency (ER) | payer MEDICARE, OTHER ==
[2022-06-04 17:07] LABS: Appearance,Urine Clear (Clear); Bilirubin,Urine Negative (Negative); Blood,Urine Negative (Negative); Color,Urine Colorless; Glucose,Urine (UA) Negative (Negative); Ketones,Urine Negative (Negative); Leukocyte Esterase,Urine Negative (Negative); Nitrite,Urine Negative (Negative); PH, Urine 5.5 (5.0-8.0); Protein,Urine Negative (Negative); Specific Gravity,Urine 1.008 (1.001-1.035); Urobilinogen,Urine <2.0 mg/dL (<2.0)
[2022-06-04] MEDS ORDERED: PANTOPRAZOLE 40 MG/10 ML VIAL IVP STA (18:53)
[2022-06-04] MEDS ORDERED: SODIUM CHLORIDE 0.9% 1,000 ML IV STA ×2 (18:53→20:55)
[2022-06-04] MEDS ORDERED: ONDANSETRON 4 MG/2 ML VIAL IVP STA (18:53)
[2022-06-04] MEDS ORDERED: HYDROmorphone 0.5 MG/0.5 ML SYRINGE IVP STA ×2 (18:53→20:55)
[2022-06-04] MEDS ORDERED: ACETAMINOPHEN TAB 500 MG TAB PO STA (19:28)
[2022-06-04 19:43] LABS: Basophils # (A) 0.1 k/uL (0-0.2); Basophils % (A) 1 %; Eosinophils # (A) 0.3 k/uL (0-0.7); Eosinophils % (A) 4 %; HCT 39.6 % (34.0-46.0); HGB 13.6 gm/dL (11.4-16.0); Lymphocytes # (A) 0.8 k/uL (1.0-4.8); Lymphocytes % (A) 12 %; MCH 31.9 pg (25.0-35.0); MCHC 34.2 g/dL (31.0-37.0); MCV 93.2 fL (80.0-100.0); Mean Platelet Volume 8.6; Monocytes # (A) 0.4 k/uL (0-1.0); Monocytes % (A) 6 %; Neutrophils # (A) 5.1 k/uL (1.3-7.7); Neutrophils % (A) 75 %; Platelet Count 283 k/uL (150-450); RBC 4.25 m/uL (3.80-5.40); RDW 12.7 % (11.5-15.5); WBC 6.8 k/uL (3.8-10.6)
[2022-06-04 19:53] LABS: ALT 27 U/L (4-34); AST 40 U/L (14-36); African American GFR (CKD) >90 (>60 ml/min/1.73 sqM); Albumin 4.4 g/dL (3.5-5.0); Alkaline Phosphatase 128 U/L (38-126); Amylase 39 U/L (30-110); Anion Gap 7 mmol/L; Blood Urea Nitrogen 15 mg/dL (7-17); Calcium 9.4 mg/dL (8.4-10.2); Carbon Dioxide 24 mmol/L (22-30); Chloride 107 mmol/L (98-107); Glucose 93 mg/dL (74-99); Lipase 78 U/L (23-300); Non-African American GFR(CKD) >90 (>60 ml/min/1.73 sqM); Potassium 4.6 mmol/L (3.5-5.1); Sodium 138 mmol/L (137-145); Total Bilirubin 0.5 mg/dL (0.2-1.3); Total Protein 7.3 g/dL (6.3-8.2)
[2022-06-04 19:55] LABS: INR 0.9 (<1.2); Partial Thromboplastin Time 24.4 sec (22.0-30.0); Prothrombin Time 9.8 sec (9.0-12.0)
--- NOTE | 2022-06-04 20:07 | ED ---
General Adult HPI - General Chief complaint: Abdominal Pain Stated complaint: R sided abd pain Time Seen by Provider: 06/04/22 18:50 Source: patient, RN notes reviewed, old records reviewed Mode of arrival: ambulatory - History of Present Illness Initial comments: Patient is a 52-year-old female with past medical history remarkable for IBS, chronic back pain who presents emergency Department complaining of fevers, not feeling well. Patient has been having worsening pain on and off for the last few weeks but it has been worse over the last 1-2 days. States the pain is prim arily in the right upper quadrant and right flank. She is been having nausea, nonbilious emesis. Endorses mild cough as well. Denies any dysuria or hematuria. Denies any diarrhea. His no other acute complaints at this time. She is rolling around in pain on the bed. - Related Data Home Medications Medication Instructions Recorded Confirmed Gabapentin 800 mg PO QID 10/13/16 04/05/18 Phentermine HCl [Adipex-P] 37.5 mg PO QAM 10/13/16 04/05/18 oxyCODONE HCL [Roxicodone] 30 mg PO QID 10/13/16 04/05/18 traMADol HCL [Ultram] 50 mg PO TID 10/13/16 04/05/18 Ibuprofen [Motrin] 800 mg PO TID PRN 02/04/17 04/06/18 Omeprazole 40 mg PO DAILY 04/05/18 04/05/18 Previous Rx's Medication Instructions Recorded levoFLOXacin [Levaquin] 500 mg PO DAILY #7 tab 04/07/18 metroNIDAZOLE [Flagyl] 500 mg PO QID #28 tab 04/07/18 HYDROcodone/APAP 5-325MG [[place] 1 tab PO Q4HR PRN 3 Days #18 tab 06/04/22 5-325] Ondansetron Odt [Zofran Odt] 4 mg PO Q8HR PRN 2 Days #6 tab 06/04/22 Pantoprazole [Protonix] 40 mg PO DAILY 7 Days #7 tab 06/04/22 Allergies Allergy/AdvReac Type Severity Reaction Status Date / Time morphine Allergy Rash/Hives Verified 06/04/22 16:26 Sulfa (Sulfonamide Allergy Rash/Hives Verified 06/04/22 16:26 Antibiotics) Review of Systems ROS Statement: Those systems with pertinent positive or pertinent negative responses have been documented in the HPI. Review of Systems: CONST: Denies fever EYES: Denies blurry vision ENT: Denies nasal congestion C/V: Denies Chest pain RESP: Denies shortness of breath GI: Endorses abdominal pain : Denies dysuria SKIN: Denies rash. MSK: Denies joint pain. NEURO: Denies headache ROS Other: All systems not noted in ROS Statement are negative. Past Medical History Additional Past Medical History / Comment(s): IBS, chronic back pain History of Any Multi-Drug Resistant Organisms: MRSA Date of last positivie culture/infection: 2009 MDRO Source:: nose Past Surgical History: Back Surgery, Hysterectomy, Orthopedic Surgery, Tubal Ligation Additional Past Surgical History / Comment(s): left shoulder, lumbar back x3 surgeries. oopherectomy. Right foot bunionectomy x2 Past Anesthesia/Blood Transfusion Reactions: No Reported Reaction Past Psychological History: No Psychological Hx Reported Past Alcohol Use History: Rare Past Drug Use History: Marijuana - Past Family History Mother Family Medical History: Deep Vein Thrombosis (DVT) General Exam - General Exam Comments Initial Comments: General: Appears in moderate distress secondary to pain. Febrile HEAD: Normal with no signs of head trauma. EYES: PERRLA, EOMI, conjunctiva normal, no discharge. ENT: Hearing grossly intact, normal oropharynx. RESPIRATORY: Clear breath sounds bilaterally. No wheezes, rales, or rhonchi. C/V: Tachycardia. S1 and S2 auscultated. Peripheral pulses 2+ intact throughout. ABD: Abdomen is soft, nondistended. Tender to palpation in the right upper quadrant, right flank. Mild CVA tenderness to percussion on the right. No guarding. No rebound tenderness. No peritoneal signs. EXT: Normal range of motion, no obvious deformity SKIN: No rashes or lesions observed on exposed skin. NEURO: Alert and oriented 4. Course Vital Signs 06/04/22 06/04/22 16:21 21:25 Temperature 102.6 F H 99.3 F Pulse Rate 122 H 105 H Respiratory 16 18 Rate Blood Pressure 153/85 O2 Sat by Pulse 98 99 Oximetry Medical Decision Making - Medical Decision Making Based on the patient's presentation and physical exam, I'm concerned for possible intra-abdominal process. I'm concerned for infectious etiology due to the fevers. She is in severe pain as well. Cannot rule out gallbladder pathology, or possible pulmonary pathology concerning her cough. Therefore we will obtain a cardiopulmonary labs, abdominal labs. We'll obtain ultrasounds of the right upper quadrant as well as the right flank to evaluate for possible kidney stone. She was in agreement this plan. She'll be given antipyretics, analgesia, antibiotics as well as fluids. Patient was in agreement this plan. Vital signs are within acceptable limits other than the sinus tachycardia which is likely secondary to her pain as well as her fever at this time. Patient does have a flu sick contacts. EKG shows no signs of acute ischemia. Laboratory studies are remarkable for a positive influenza A infection. Patient is slightly elevated AST and alk phos. Remainder the labs are unremarkable including a normal lactic acid.EKG showed no signs of acute ischemia. Patient's chest x-ray as interpreted by myself reveals no evidence of acute cardio may process. Patient's ultrasound of the gallbladder and kidneys showed cholelithiasis but no signs of cholecystitis. No renal findings. Patient's laboratory studies are remarkable for slightly e levated AST of 40 and alk phos of 128. These are minimally elevated. Patient is influenza A positive. Urine is been normal limits. Lactic acid is within normal limits. CBC is within normal limits. After the patient on results of her laboratory studies and imaging. Pain is improved. Fever seems to be mildly improved as well. However she is still mildly tachycardic with some right upper quadrant pain. We discussed further imaging and she does want a CT abdomen and pelvis at this time which I believe is reasonable. This was ordered. She will be given additional IV fluids as well as analgesia medications. CT abdomen and pelvis as intervertebral myself reveals no acute intracranial abdominal process. Patient does have a nonobstructing right renal calculus. On reevaluation, she is feeling improved. Fevers improved. Tachycardia is improved. I discussed the workup with the patient. The patient's influenza A, may have some biliary colic as well. Workup was unremarkable otherwise. Patient was in agreement expressed understanding. I do believe it is safer to be discharged home at this time with close follow-up. Patient was in agreement this plan. I will provide the patient with a prescription for [place], protonix, ODT Zofran. I instructed the patient to follow up with their PCP in the next 1-3 days. I explained that the patient should return to the emergency department if they experience any worsening symptoms. Strict return precautions were discussed with the patient. The patient expressed understanding of these instructions. I answered all questions that the patient had. The patient was discharged home in good condition with their prescriptions and follow up information. - Lab Data Result diagrams: 06/04/22 19:22 06/04/22 19:22 Lab Results 06/04/22 06/04/22 06/04/22 Range/Units 16:29 16:34 19:22 WBC 6.8 (3.8-10.6) k/uL RBC 4.25 (3.80-5.40) m/uL Hgb 13.6 (11.4-16.0) gm/dL Hct 39.6 (34.0-46.0) % MCV 93.2 (80.0-100.0) fL MCH 31.9 (25.0-35.0) pg MCHC 34.2 (31.0-37.0) g/dL RDW 12.7 (11.5-15.5) % Plt Count 283 (150-450) k/uL MPV 8.6 Neutrophils % 75 % Lymphocytes % 12 % Monocytes % 6 % Eosinophils % 4 % Basophils % 1 % Neutrophils # 5.1 (1.3-7.7) k/uL Lymphocytes # 0.8 L (1.0-4.8) k/uL Monocytes # 0.4 (0-1.0) k/uL Eosinophils # 0.3 (0-0.7) k/uL Basophils # 0.1 (0-0.2) k/uL PT (9.0-12.0) sec INR (<1.2) APTT (22.0-30.0) sec Sodium (137-145) mmol/L Potassium (3.5-5.1) mmol/L Chloride (98-107) mmol/L Carbon Dioxide (22-30) mmol/L Anion Gap mmol/L BUN (7-17) mg/dL Creatinine (0.52-1.04) mg/dL Est GFR (CKD-EPI)AfAm (>60 ml/min/1.73 sqM) Est GFR (CKD-EPI)NonAf (>60 ml/min/1.73 sqM) Glucose (74-99) mg/dL Plasma Lactic Acid Fredrick (0.7-2.0) mmol/L Calcium (8.4-10.2) mg/dL Total Bilirubin (0.2-1.3) mg/dL AST (14-36) U/L ALT (4-34) U/L Alkaline Phosphatase (38-126) U/L Total Protein (6.3-8.2) g/dL Albumin (3.5-5.0) g/dL Amylase (30-110) U/L Lipase (23-300) U/L Urine Color Colorless Urine Appearance Clear (Clear) Urine pH 5.5 (5.0-8.0) Ur Specific [place] 1.008 (1.001-1.035) Urine Protein Negative (Negative) Urine Glucose (UA) Negative (Negative) Urine Ketones Negative (Negative) Urine Blood Negative (Negative) Urine Nitrite Negative (Negative) Urine Bilirubin Negative (Negative) Urine Urobilinogen <2.0 (<2.0) mg/dL Ur Leukocyte Esterase Negative (Negative) Influenza Type A (PCR) Detected A (Not Detectd) Influenza Type B (PCR) Not Detected (Not Detectd) RSV (PCR) Not Detected (Not Detectd) SARS-CoV-2 (PCR) Not Detected (Not Detectd) 06/04/22 06/04/22 06/04/22 Range/Units 19:22 19:22 19:22 WBC (3.8-10.6) k/uL RBC (3.80-5.40) m/uL Hgb (11.4-16.0) gm/dL Hct (34.0-46.0) % MCV (80.0-100.0) fL MCH (25.0-35.0) pg MCHC (31.0-37.0) g/dL RDW (11.5-15.5) % Plt Count (150-450) k/uL MPV Neutrophils % % Lymphocytes % % Monocytes % % Eosinophils % % Basophils % % Neutrophils # (1.3-7.7) k/uL Lymphocytes # (1.0-4.8) k/uL Monocytes # (0-1.0) k/uL Eosinophils # (0-0.7) k/uL Basophils # (0-0.2) k/uL PT 9.8 (9.0-12.0) sec INR 0.9 (<1.2) APTT 24.4 (22.0-30.0) sec Sodium 138 (137-145) mmol/L Potassium 4.6 (3.5-5.1) mmol/L Chloride 107 (98-107) mmol/L Carbon Dioxide 24 (22-30) mmol/L Anion Gap 7 mmol/L BUN 15 (7-17) mg/dL Creatinine 0.56 (0.52-1.04) mg/dL Est GFR (CKD-EPI)AfAm >90 (>60 ml/min/1.73 sqM) Est GFR (CKD-EPI)NonAf >90 (>60 ml/min/1.73 sqM) Glucose 93 (74-99) mg/dL Plasma Lactic Acid Fredrick 0.9 (0.7-2.0) mmol/L Calcium 9.4 (8.4-10.2) mg/dL Total Bilirubin 0.5 (0.2-1.3) mg/dL AST 40 H (14-36) U/L ALT 27 (4-34) U/L Alkaline Phosphatase 128 H (38-126) U/L Total Protein 7.3 (6.3-8.2) g/dL Albumin 4.4 (3.5-5.0) g/dL Amylase 39 (30-110) U/L Lipase 78 (23-300) U/L Urine Color Urine Appearance (Clear) Urine pH (5.0-8.0) Ur Specific [place] (1.001-1.035) Urine Protein (Negative) Urine Glucose (UA) (Negative) Urine Ketones (Negative) Urine Blood (Negative) Urine Nitrite (Negative) Urine Bilirubin (Negative) Urine Urobilinogen (<2.0) mg/dL Ur Leukocyte Esterase (Negative) Influenza Type A (PCR) (Not Detectd) Influenza Type B (PCR) (Not Detectd) RSV (PCR) (Not Detectd) SARS-CoV-2 (PCR) (Not Detectd) - EKG Data -: EKG Interpreted by Me EKG Comments: 12-lead Electrocardiogram Interpretation Note EKG was reviewed and interpreted by myself. 12-lead ECG performed at 1919 is interpreted by me as revealing sinus tachycardia at a rate of 108 beats per minute. [place] is normal. ND interval is 137 ms, QRS duration 76 ms, QTc is 369 ms.. There were no ST or T wave abnormalities to suggest myocardial ischemia or injury. R wave progression across the precordium was satisfactory. By my inte rpretation this EKG is non-diagnostic for acute ischemia. When compared with EKG from October 2019, no significant change. Disposition Clinical Impression: Influenza A, Abdominal pain, Biliary colic Disposition: HOME SELF-CARE Condition: Good Instructions (If sedation given, give patient instructions): Influenza (ED), Abdominal Pain (ED) Prescriptions: HYDROcodone/APAP 5-325MG [[place] 5-325] 1 tab PO Q4HR PRN 3 Days #18 tab PRN Reason: Pain Pantoprazole [Protonix] 40 mg PO DAILY 7 Days #7 tab Ondansetron Odt [Zofran Odt] 4 mg PO Q8HR PRN 2 Days #6 tab PRN Reason: Nausea Is patient prescribed a controlled substance at d/c from ED?: Yes When asked, does pt state using other controlled substances?: Yes If prescribed controlled substance>3 days was MAPS reviewed?: Prescribed <3 Days If opioid is for acute pain is fill amount 7 days or less?: Yes If Rx opioid, was Start Talking consent form obtained?: Yes Referrals: None,Stated [Primary Care Provider] - 1-2 days Time of Disposition: 22:05
--- NOTE | 2022-06-04 20:32 | US ---
EXAMINATION TYPE: US abd limited kidneys/bladder DATE OF EXAM: 06/04/2022 COMPARISON: NONE CLINICAL HISTORY: Pain. Right flank pain. TECHNIQUE: Multiple sonographic images of the right upper quadrant, bilateral kidneys, and bladder ar e obtained. FINDINGS: EXAM MEASUREMENTS: Liver Length: 14.2 cm Gallbladder Wall: .2 cm CBD: 0.31 cm Right Kidney: 10.0 x 3.9 x 4.4 cm Left Kidney: 9.9 x 5.6 x 4.9 cm Pancreas: wnl Liver: wnl Gallbladder: 2.1 cm mobile stone is present CBD: wnl Right Kidney: wnl Left Kidney: wnl Bladder: wnl Bilateral Jets Seen No IMPRESSION: Cholelithiasis.
--- NOTE | 2022-06-04 20:45 | XR ---
EXAMINATION TYPE: XR chest 2V DATE OF EXAM: 06/04/2022 8:14 PM COMPARISON: Chest radiographs from 10/31/2019 TECHNIQUE: XR chest 2V Frontal and lateral views of the chest. CLINICAL INDICATION:Female, 52 years old with history of cough; FINDINGS: Lungs/Pleura: There is no evidence of pleural effusion, focal consolidation, or pneumothorax. Pulmonary vascularity: Unremarkable. Heart/mediastinum: Cardiomediastinal silhouette is unremarkable. Musculoskeletal: No acute osseous pathology. IMPRESSION: No acute cardiopulmonary disease/process.
[2022-06-04 21:26] VITALS: RESP 18
--- NOTE | 2022-06-04 21:57 | CT ---
EXAMINATION TYPE: CT abdomen pelvis w con CT DLP: 1009.9 mGycm, Automated exposure control for dose reduction was used. DATE OF EXAM: 06/04/2022 9:21 PM COMPARISON: CT abdomen pelvis most recent from 04/05/2018 CLINICAL INDICATION:Female, 52 years old with history of RUQ,right mid quadrant persistent pain; Leslie re Rt side abdomen pain TECHNIQUE: Axial CT of the abdomen and pelvis. Sagittal and coronal reformats were created on a [employer] workstation. Contrast used:100cc mL of Isovue 300 with IV Contrast, Oral contrast used: without Oral Contrast FINDINGS: LOWER CHEST: Unremarkable ABDOMEN LIVER: Unremarkable GALLBLADDER AND BILE DUCTS: Unremarkable. PANCREAS: Unremarkable. SPLEEN: Unremarkable. ADRENAL GLANDS: Unremarkable. KIDNEYS AND URETERS: Nonobstructing right renal 2 mm calculus. No evidence of left renal calculi. No hydronephrosis bilaterally. PELVIS Limited evaluation due to streak artifact. BLADDER: Unremarkable REPRODUCTIVE: Unremarkable. ABDOMEN & PELVIS STOMACH AND BOWEL: No evidence of bowel obstruction. Appendix is normal. Moderate amount of stool in the colon PERITONEUM: No evidence of pneumoperitoneum or free fluid. VASCULATURE: No evidence of aortic aneurysm. The arterial vasculature. MUSCULOSKELETAL: No acute osseous abnormalities left hip fixation changes. Hardware appears intact. P ostsurgical changes to L4 and L5 with hardware in appropriate position. Grade 1 Anterolisthesis of L3 on L4. LYMPH NODES: No gross evidence for lymphadenopathy. SOFT TISSUE/ABDOMINAL WALL: Unremarkable IMPRESSION: 1. No evidence for acute abdominal process. 2. Nonobstructing right renal calculus.
[2022-06-04 22:36] VITALS: BP 143/75; PULSE 101; TEMP 98.9
== END 2022-06-04 22:36 | disposition home or self-care (01) ==
LOC: EC 16:07
DX: J10.1 Influenza due to other identified influenza virus with other respiratory manifestations (principal); K80.50 Calculus of bile duct without cholangitis or cholecystitis without obstruction; Z88.5 Allergy status to narcotic agent; Z88.2 Allergy status to sulfonamides; Z20.822 Contact with and (suspected) exposure to COVID-19
CPT/HCPCS: 99284; 96374; 96375 ×2; 96376; 96361 ×2; 36415; 93005; 80053; 82150; 83605; 83690; 85025; 85610; 85730; 81003; 87636; 71046; 76705; 76770; 74177; J2405; C9113; J1170; Q9967; 99285

== ENCOUNTER → 2022-12-17 | Outpatient (CLI) | payer MEDICARE, OTHER ==
--- NOTE | 2022-12-17 08:28 | MM ---
Reason for Exam: Clinical finding. Last mammogram was performed 7 year(s) and 1 month(s) ago. Indicated Problems: Non-bloody discharge of the right side (Clear) for 2 Year(s). Patient History: Menarche at age 13. First Full-Term at age 21. Left ovary removed at age 44. Right ovary removed at age 44. Hysterectomy at age 41. Postmenopausal. 2011, Excisional Biopsy on the Left side. Maternal grandmother had breast cancer, age 45. Maternal grandmother had breast cancer, age 50. Maternal grandmother had ovarian cancer at or over age 50. Maternal grandmother had breast cancer, bilateral, at or over age 50. Risk Values: Rubi 5 year model risk: 1.1%. NCI Lifetime model risk: 9.3%. Prior Study Comparison: 10/25/2011 Screening Mammogram, [facility] . 11[facility]18[facility]2011 [facility] . 10/08/2014 Bilateral Diagnostic Mammogram, [facility]. 11/06/2015 Bilateral Screening Mammogram, [facility]. Tissue Density: The breast tissue is heterogeneously dense. This may lower the sensitivity of mammography. Analyzed By CAD. Overall Assessment: Negative, BI-RAD 1 Management: Screening Mammogram of both breasts in 1 year. Electronically signed and approved by: Minh Su M.D.
--- NOTE | 2022-12-17 08:52 | US ---
EXAMINATION TYPE: US pelvis complete transvag DATE OF EXAM: 12/17/2022 COMPARISON: CT abdomen and pelvis June 04, 2022 CLINICAL INDICATION: Female, 52 years old with history of R102; Partial hysterectomy patient has left ovary only. Pain. TECHNIQUE: Transvaginal (TV) and Transabdominal (TA) . EXAM MEASUREMENTS: Uterus: Surgically absent Endometrial Stripe: Surgically absent Right Ovary: Surgically absent Left Ovary: 1.5 x 1.7 x 1.2 cm 1. Uterus: Surgically absent 2. Endometrium: Surgically absent 3. Right Ovary: Surgically absent 4. Left Ovary: 2 echogenic areas seen largest .8 cm. 5. Bilateral Adnexa: wnl 6. Posterior cul-de-sac: wnl Uterus is surgically absent. No free fluid in the pelvis. Right ovary is surgically absent. Normal size left ovary with tiny hyperechoic foci probable calcific ations correlates with most recent CT axial image 63. No new suspicious adnexal mass is seen on curre nt study. IMPRESSION: No suspicious new finding is seen to account for patient's symptoms of pain.
== END | disposition home or self-care (01) ==
LOC: RADUSWWP 06:57
PROVIDERS: ATTEND Family Medicine
DX: R92.8 Other abnormal and inconclusive findings on diagnostic imaging of breast (principal); R10.2 Pelvic and perineal pain; Z80.3 Family history of malignant neoplasm of breast; Z78.0 Asymptomatic menopausal state
CPT/HCPCS: 76830; 76856; 77062; 77066

== ENCOUNTER → 2022-12-17 | Outpatient (CLI) | payer MEDICARE, OTHER | END | disposition home or self-care (01) | LOC: RADMAMWWP 06:54 | PROVIDERS: ATTEND Family Medicine | DX: R92.8 Other abnormal and inconclusive findings on diagnostic imaging of breast (principal) ==

== ENCOUNTER 2023-09-08 14:24 | Emergency (ER) | payer MEDICARE, OTHER ==
[2023-09-08 14:33] VITALS: TEMP 98.2
[2023-09-08 15:21] LABS: Appearance,Urine Clear (Clear); Basophils # (A) 0.1 k/uL (0-0.2); Basophils % (A) 1 %; Bilirubin,Urine Negative (Negative); Blood,Urine Negative (Negative); Color,Urine Yellow; Eosinophils # (A) 0.3 k/uL (0-0.7); Eosinophils % (A) 3 %; Glucose,Urine (UA) Negative (Negative); HCT 46.8 % (34.0-46.0); Ketones,Urine Trace (Negative); Leukocyte Esterase,Urine Negative (Negative); Lymphocytes # (A) 4.3 k/uL (1.0-4.8); Lymphocytes % (A) 42 %; Mean Platelet Volume 8.6; Monocytes # (A) 0.4 k/uL (0-1.0); Monocytes % (A) 4 %; Neutrophils # (A) 4.9 k/uL (1.3-7.7); Neutrophils % (A) 48 %; Nitrite,Urine Negative (Negative); Platelet Count 332 k/uL (150-450); Protein,Urine Trace (Negative); RBC 4.82 m/uL (3.80-5.40); RDW 12.8 % (11.5-15.5); Specific Gravity,Urine 1.035 (1.001-1.035); WBC 10.2 k/uL (3.8-10.6)
--- NOTE | 2023-09-08 15:37 | ED ---
Abdominal Pain HPI - General Chief Complaint: Abdominal Pain Stated Complaint: Abd pain Time Seen by Provider: 09/08/23 14:34 Source: patient, RN notes reviewed Mode of arrival: ambulatory Limitations: no limitations - History of Present Illness Initial Comments: 53-year-old female presents emergency department complaint of right flank pain. Patient states that this pain has been on and off last couple days but never goes away. Patient states she feels like she has a kidney stone. Patient denies any dysuria states nothing really makes the pain feel better or worse other than symptoms certain movements worsen she has chronic back issues she denies any bowel, bladder incontinence or retention no saddle anesthesias. - Related Data Home Medications Medication Instructions Recorded Confirmed Gabapentin 600 mg PO TID 10/13/16 08/30/22 traMADol HCL [Ultram] 50 mg PO QID 10/13/16 08/30/22 Omeprazole 40 mg PO DAILY 04/05/18 08/30/22 Varenicline [Chantix Continuing 1 mg PO DIRECTED 08/11/22 08/30/22 Pack] tiZANidine [Zanaflex] 4 mg PO BID 08/11/22 08/30/22 Previous Rx's Medication Instructions Recorded Ibuprofen [Motrin] 600 mg PO Q6HR PRN #40 tab 08/17/22 Ketorolac [Toradol] 10 mg PO Q8HR #15 tab 09/08/23 Ondansetron Odt [Zofran Odt] 4 mg PO Q8HR PRN #10 tab 09/08/23 Allergies Allergy/AdvReac Type Severity Reaction Status Date / Time morphine Allergy Rash/Hives Verified 08/30/22 11:23 Sulfa (Sulfonamide Allergy Rash/Hives Verified 08/30/22 11:23 Antibiotics) Review of Systems ROS Statement: Those systems with pertinent positive or pertinent negative responses have been documented in the HPI. ROS Other: All systems not noted in ROS Statement are negative. Past Medical History Additional Past Medical History / Comment(s): IBS, chronic back pain kidney stones History of Any Multi-Drug Resistant Organisms: MRSA Date of last positivie culture/infection: 2009 MDRO Source:: nose Past Surgical History: Back Surgery, Cholecystectomy, Hysterectomy, Joint Replacement, Orthopedic Surgery, Tubal Ligation Additional Past Surgical History / Comment(s): left shoulder, lumbar back x3 surgeries, oopherectomy, Right foot bunionectomy x2, left hip replaced Past Anesthesia/Blood Transfusion Reactions: No Reported Reaction Past Psychological History: No Psychological Hx Reported Smoking Status: Current every day smoker Past Alcohol Use History: Rare Past Drug Use History: Marijuana - Past Family History Mother Family Medical History: Deep Vein Thrombosis (DVT) General Exam Limitations: no limitations General appearance: alert, in no apparent distress Head exam: Present: atraumatic, normocephalic, normal inspection Neck exam: Present: normal inspection. Absent: tenderness, meningismus, lymphadenopathy Respiratory exam: Present: normal lung sounds bilaterally. Absent: respiratory distress, wheezes, rales, rhonchi, stridor Cardiovascular Exam: Present: regular rate, normal rhythm, normal heart sounds. Absent: systolic murmur, diastolic murmur, rubs, gallop, clicks GI/Abdominal exam: Present: soft, tenderness, normal bowel sounds. Absent: distended, guarding, rebound, rigid Back exam: Present: CVA tenderness (R). Absent: CVA tenderness (L) Course Vital Signs 09/08/23 09/08/23 14:25 15:43 Temperature 98.2 F Pulse Rate 98 91 Respiratory 20 16 Rate Blood Pressure 109/58 117/79 O2 Sat by Pulse 100 98 Oximetry Medical Decision Making - Medical Decision Making Was pt. sent in by a medical professional or institution (TATE Castro, CLAIMS ADMINISTRATOR, urgent care, hospital, or halfway...) When possible be specific @ -No Did you speak to anyone other than the patient for history (EMS, parent, family, police, friend...)? What history was obtained from this source @ -No Did you review nursing and triage notes (agree or disagree)? Why? @ -I reviewed and agree with nursing and triage notes Were old charts reviewed (outside hosp., previous admission, EMS record, old EKG, old radiological studies, urgent care reports/EKG's, halfway records)? Report findings @ -No old charts were reviewed Differential Diagnosis (chest pain, altered mental status, abdominal pain women, abdominal pain men, vaginal bleeding, weakness, fever, dyspnea, syncope, headache, dizziness, GI bleed, back pain, seizure, CVA, palpatations, mental health, musculoskeletal)? @ -Differential Abdominal Pain Women: Appendicitis, Cholecystitis, diverticulosis, ischemic bowel, pancreatitis, hepatitis, UTI, gastroenteritis, AAA, incarcerated hernia, bowel obstruction, constipation, inflammatory bowel, hepatitis, peptic ulcer disease, splenic infarction, perforated viscus, vulvitis, ovarian torsion, PID, kidney stone, placenta abruption, this is not meant to be an all-inclusive list EKG interpreted by me (3pts min.). @ -[None X-rays interpreted by me (1pt min.). @ -None done CT interpreted by me (1pt min.). @ -CT abdomen pelvis showing evidence of kidney stone without 1 in the ureter.] U/S interpreted by me (1pt. min.). @ -None done What testing was considered but not performed or refused? (CT, X-rays, U/S, labs)? Why? @ -None What meds were considered but not given or refused? Why? @ -None Did you discuss the management of the patient with other professionals (professionals i.e. , PA, CLAIMS ADMINISTRATOR, lab, RT, psych nurse, social psychologist, fiberglass container winding operator, teacher, staff antisubmarine officer, director of casework)? Give summary @ -No Was smoking cessation discussed for >3mins.? @ -No Was critical care preformed (if so, how long)? @ -No Were there social determinants of health that impacted care today? How? (Homelessness, low income, unemployed, alcoholism, drug addiction, transportation, low edu. Level, literacy, decrease access to med. care, prison, rehab)? @ -No Was there de-escalation of care discussed even if they declined (Discuss DNR or withdrawal of care, Hospice)? DNR status @ -No What co-morbidities impacted this encounter? (DM, HTN, Smoking, COPD, CAD, Cancer, CVA, ARF, Chemo, Hep., AIDS, mental health diagnosis, sleep apnea, morbid obesity)? @ -None Was patient admitted / discharged? Hospital course, mention meds given and route, prescriptions, significant lab abnormalities, going to OR and other pertinent info. @ -Discharge patient has no acute intra-abdominal process there is a kidney stone within the kidney. Patient's pain is improved to be discharged in stable condition. Undiagnosed new problem with uncertain prognosis? @ -No Drug Therapy requiring intensive monitoring for toxicity (Heparin, Nitro, Insulin, Cardizem)? @ -No Were any procedures done? @ -No Diagnosis/symptom? @ -Abdominal pain Acute, or Chronic, or Acute on Chronic? @ -Acute Uncomplicated (without systemic symptoms) or Complicated (systemic symptoms)? @ -uncomplicated Side effects of treatment? @ -No Exacerbation, Progression, or Severe Exacerbation? @ -No Poses a threat to life or bodily function? How? (Chest pain, [place], VA, pneumonia, PE, COPD, DKA, ARF, appy, cholecystitis, CVA, Diverticulitis, Homicidal, Suicidal, threat to staff... and all critical care pts) @ -No - Lab Data Result diagrams: 09/08/23 14:55 09/08/23 14:55 Lab Results 09/08/23 09/08/23 09/08/23 Range/Units 14:55 14:55 14:55 WBC 10.2 (3.8-10.6) k/uL RBC 4.82 (3.80-5.40) m/uL Hgb 15.0 (11.4-16.0) gm/dL Hct 46.8 H (34.0-46.0) % MCV 97.0 (80.0-100.0) fL MCH 31.0 (25.0-35.0) pg MCHC 32.0 (31.0-37.0) g/dL RDW 12.8 (11.5-15.5) % Plt Count 332 (150-450) k/uL MPV 8.6 Neutrophils % 48 % Lymphocytes % 42 % Monocytes % 4 % Eosinophils % 3 % Basophils % 1 % Neutrophils # 4.9 (1.3-7.7) k/uL Lymphocytes # 4.3 (1.0-4.8) k/uL Monocytes # 0.4 (0-1.0) k/uL Eosinophils # 0.3 (0-0.7) k/uL Basophils # 0.1 (0-0.2) k/uL Sodium 140 (137-145) mmol/L Potassium 4.8 (3.5-5.1) mmol/L Chloride 107 (98-107) mmol/L Carbon Dioxide 24 (22-30) mmol/L Anion Gap 9 mmol/L BUN 18 H (7-17) mg/dL Creatinine 0.73 (0.52-1.04) mg/dL Est GFR (CKD-EPI)AfAm >90 (>60 ml/min/1.73 sqM) Est GFR (CKD-EPI)NonAf >90 (>60 ml/min/1.73 sqM) Glucose 98 (74-99) mg/dL Calcium 9.9 (8.4-10.2) mg/dL Total Bilirubin 0.3 (0.2-1.3) mg/dL AST 31 (14-36) U/L ALT 25 (4-34) U/L Alkaline Phosphatase 109 (38-126) U/L Total Protein 7.3 (6.3-8.2) g/dL Albumin 4.3 (3.5-5.0) g/dL Amylase 46 (30-110) U/L Lipase 76 (23-300) U/L Urine Color Yellow Urine Appearance Clear (Clear) Urine pH 6.0 (5.0-8.0) Ur Specific [place] 1.035 (1.001-1.035) Urine Protein Trace H (Negative) Urine Glucose (UA) Negative (Negative) Urine Ketones Trace H (Negative) Urine Blood Negative (Negative) Urine Nitrite Negative (Negative) Urine Bilirubin Negative (Negative) Urine Urobilinogen 2.0 (<2.0) mg/dL Ur Leukocyte Esterase Negative (Negative) Disposition Clinical Impression: Abdominal pain Disposition: HOME SELF-CARE Condition: Stable Instructions (If sedation given, give patient instructions): Abdominal Pain (ED) Additional Instructions: Please return to the Emergency Department if symptoms worsen or any other concerns. Prescriptions: Ketorolac [Toradol] 10 mg PO Q8HR #15 tab Ondansetron Odt [Zofran Odt] 4 mg PO Q8HR PRN #10 tab PRN Reason: Nausea Is patient prescribed a controlled substance at d/c from ED?: No Referrals: Donavan Pryor DO [Primary Care Provider] - 1-2 days Time of Disposition: 16:39
[2023-09-08 15:38] LABS: ALT 25 U/L (4-34); AST 31 U/L (14-36); African American GFR (CKD) >90 (>60 ml/min/1.73 sqM); Albumin 4.3 g/dL (3.5-5.0); Alkaline Phosphatase 109 U/L (38-126); Amylase 46 U/L (30-110); Anion Gap 9 mmol/L; Blood Urea Nitrogen 18 mg/dL (7-17); Calcium 9.9 mg/dL (8.4-10.2); Carbon Dioxide 24 mmol/L (22-30); Chloride 107 mmol/L (98-107); Glucose 98 mg/dL (74-99); Lipase 76 U/L (23-300); Non-African American GFR(CKD) >90 (>60 ml/min/1.73 sqM); Potassium 4.8 mmol/L (3.5-5.1); Sodium 140 mmol/L (137-145); Total Bilirubin 0.3 mg/dL (0.2-1.3); Total Protein 7.3 g/dL (6.3-8.2)
[2023-09-08] MEDS: SODIUM CHLORIDE 0.9% 500 ML 500 ML IV ONE (15:38)
[2023-09-08] MEDS: ONDANSETRON 4 MG/2 ML VIAL IVP STA (15:39)
[2023-09-08] MEDS: SODIUM CHLORIDE 0.9% 1,000 ML IV ONE (15:39)
[2023-09-08] MEDS: HYDROmorphone 0.5 MG/0.5 ML SYRINGE IVP STA (15:39)
--- NOTE | 2023-09-08 16:19 | CT ---
EXAMINATION TYPE: CT abdomen pelvis wo con DATE OF EXAM: 09/08/2023 COMPARISON: HISTORY: right flank pain that wraps around the front CT DLP: 643.6 mGycm Automated exposure control for dose reduction was used. TECHNIQUE: Helical acquisition of images was performed from the lung bases through the pelvis. FINDINGS: The lung bases are clear. There has been cholecystectomy.. There is no biliary ductal dilatation. There is no organomegaly involving the liver, pancreas, spleen or adrenal glands. There is a stable 7 mm nonobstructing right lower pole renal calculus. There is no left renal calculu s and no hydronephrosis bilaterally. The bowel loops are normal in caliber and there is no dilatation or obstruction. No inflammatory mullen ges identified within the mesentery. There is no free intraperitoneal air or fluid. There is no pelvic mass, free fluid, abscess or adenopathy. The osseous structures are intact. IMPRESSION: Stable 7 mm nonobstructing right renal calculus with no other significant abnormality seen.
[2023-09-08] MEDS: traMADol 50 MG STARTER PACK 3 TAB BTL PO STA (16:51)
[2023-09-08 17:25] VITALS: BP 124/81; PULSE 83; RESP 18
== END 2023-09-08 17:01 | disposition home or self-care (01) ==
LOC: EC 14:24
DX: N20.0 Calculus of kidney (principal); F17.200 Nicotine dependence, unspecified, uncomplicated; F12.90 Cannabis use, unspecified, uncomplicated; Z88.2 Allergy status to sulfonamides; Z88.6 Allergy status to analgesic agent
CPT/HCPCS: 36415; 80053; 82150; 83690; 85025; 81003; 74176; 99284; 96374; 96375; 96361; J2405; J1170

== ENCOUNTER → 2023-09-19 | Outpatient (CLI) | payer MEDICARE, OTHER ==
--- NOTE | 2023-09-19 18:05 | XR ---
EXAMINATION TYPE: XR KUB DATE OF EXAM: 09/19/2023 5:31 PM CLINICAL INDICATION:Female, 53 years old with history of N20.0 CALCULUS OF KIDNEY RT; [facility] COMPARISON: None. TECHNIQUE: One radiographic view of the abdomen was obtained. FINDINGS: The bowel gas pattern is nonspecific without dilated loops of small or large bowel. There i s no evidence for organomegaly or pneumoperitoneum. The osseous structures are intact. Fixation telma dware in the lower spine at L4-L5 appears intact. Left hip arthroplasty changes are present. Hardware appears intact. Mild to moderate degeneration changes right hip with osteophyte formation and joint space narrowing. Possible linear array inferior calculus measuring up to 5 mm. Fecal material and gas are demonstrated throughout the colon and rectum. IMPRESSION: 1. Right inferior renal pole calculus suggested. 2. Nonspecific bowel gas pattern without radiographic evidence for acute process.
== END | disposition home or self-care (01) ==
LOC: RADXRMAIN 17:18
PROVIDERS: ATTEND Urology
DX: N20.0 Calculus of kidney (principal)
CPT/HCPCS: 74018

== ENCOUNTER → 2023-10-04 | Outpatient (CLI) | payer MEDICARE, OTHER ==
[2023-10-04 16:00] LABS: Eosinophils # (A) 0.38 X 10*3/uL (0.04-0.35); Eosinophils % (A) 3.9 %; HCT 45.2 % (37.2-46.3); HGB 15.1 g/dL (12.0-15.0); Lymphocytes # (A) 4.22 X 10*3/uL (0.90-5.00); Lymphocytes % (A) 43.4 %; MCH 31.1 pg (27.0-32.0); MCHC 33.4 g/dL (32.0-37.0); Mean Platelet Volume 11.1 FL (9.5-12.2); Monocytes # (A) 0.61 X 10*3/uL (0.20-1.00); Monocytes % (A) 6.3 %; NRBC Per 100 WBC 0 X 10*3/uL (0.00-0.01); Neutrophils # (A) 4.39 X 10*3/uL (1.80-7.70); Neutrophils % (A) 45.2 %; Platelet Count 368 X 10*3/uL (140-440); RBC 4.86 X 10*6/uL (4.10-5.20); RDW 13.2 % (11.5-14.5); WBC 9.72 X 10*3/uL (4.50-10.00)
[2023-10-04 16:44] LABS: BUN/Creat Ratio 26.17 Ratio (12.00-20.00); Blood Urea Nitrogen 15.7 mg/dL (9.0-27.0); Chloride 101 mmol/L (96-109); Glucose 121 mg/dL (70-110); Potassium 4.6 mmol/L (3.5-5.5); Sodium 137 mmol/L (135-145)
== END | disposition home or self-care (01) ==
LOC: LABPAT 10:54
PROVIDERS: ATTEND Urology
DX: Z01.812 Encounter for preprocedural laboratory examination (principal); N20.0 Calculus of kidney
CPT/HCPCS: 36415; 80048; 85025

== ENCOUNTER 2023-10-06 08:48 | Day surgery (SDC) | payer MEDICARE, OTHER ==
--- NOTE | 2023-10-02 21:29 | P.GSHP ---
History of Present Illness H&P Date: 10/02/23 Chief Complaint: Right flank pain Patient is a 53-year-old white female with 1 previous episode of urolithiasis, which she presumably passed. She now presents with right flank pain radiating to the right lower abdomen. CT scan shows a 4 x 5 mm right lower pole renal calculus, which is not seen with certainty on a plain radiograph. - Gastrointestinal Gastrointestinal: Reports abdominal pain, Reports nausea, Reports vomiting - Genitourinary (Female) Genitourinary: Reports flank pain, Reports kidney stones, Denies hematuria Past Medical History Additional Past Medical History / Comment(s): IBS, chronic back pain kidney stones History of Any Multi-Drug Resistant Organisms: MRSA Date of last positivie culture/infection: 2009 MDRO Source:: nose Past Surgical History: Back Surgery, Cholecystectomy, Hysterectomy, Joint Replacement, Orthopedic Surgery, Tubal Ligation Additional Past Surgical History / Comment(s): left shoulder, lumbar back x3 surgeries, oopherectomy, Right foot bunionectomy x2, left hip replaced Past Anesthesia/Blood Transfusion Reactions: No Reported Reaction Past Psychological History: No Psychological Hx Reported Smoking Status: Current every day smoker Past Alcohol Use History: Rare Past Drug Use History: Marijuana - Past Family History Mother Family Medical History: Deep Vein Thrombosis (DVT) Medications and Allergies Home Medications Medication Instructions Recorded Confirmed Type Gabapentin 600 mg PO TID 10/13/16 08/30/22 History traMADol HCL [Ultram] 50 mg PO QID 10/13/16 08/30/22 History Omeprazole 40 mg PO DAILY 04/05/18 08/30/22 History Varenicline [Chantix Continuing 1 mg PO DIRECTED 08/11/22 08/30/22 History Pack] tiZANidine [Zanaflex] 4 mg PO BID 08/11/22 08/30/22 History Ibuprofen [Motrin] 600 mg PO Q6HR PRN #40 tab 08/17/22 08/30/22 Rx Ketorolac [Toradol] 10 mg PO Q8HR #15 tab 09/08/23 Rx Ondansetron Odt [Zofran Odt] 4 mg PO Q8HR PRN #10 tab 09/08/23 Rx Allergies Allergy/AdvReac Type Severity Reaction Status Date / Time morphine Allergy Rash/Hives Verified 08/30/22 11:23 Sulfa (Sulfonamide Allergy Rash/Hives Verified 08/30/22 11:23 Antibiotics) Surgical - Exam - General well developed, well nourished, no distress - Neck no masses, trachea midline - Respiratory normal respiratory effort - Abdomen Abdomen: soft, non tender, no guarding, no rigid, no rebound - Psychiatric oriented to time, oriented to person, oriented to place, speech is normal, memory intact Results - Imaging Abdominal x-ray: report reviewed, image reviewed CT scan - abdomen: report reviewed, image reviewed Assessment and Plan (1) Calculus of kidney Status: Acute Code(s): N20.0 - CALCULUS OF KIDNEY SNOMED Code(s): 50166965 Plan: Cystoscopy, right ureteroscopy with Holmium laser lithotripsy and possible stone basketing, right ureteral stent insertion. The procedure has been reviewed in detail with the patient. She has been made aware of potential risks, which include anesthesia, bleeding, infection, ureteral injury, and inability to successfully remove the calculus.
[2023-10-03 13:23] VITALS: BMI 30.6
[2023-10-06] MEDS: LACTATED RINGERS 1,000 ML IV SCH (08:58)
[2023-10-06] MEDS: ONDANSETRON 4 MG/2 ML VIAL IVP ONE (09:21)
[2023-10-06] MEDS: DEXAMETHASONE SOD PHOSPHATE 4 MG/ML 1 ML VIAL IV ONE (09:21)
[2023-10-06] MEDS ORDERED: LIDOCAINE 1% INJ 10MG/ML (20 ML MDV) ONE (09:28)
[2023-10-06] MEDS ORDERED: PROPOFOL 10 MG/ML 20 ML VIAL IV ONE (09:28)
[2023-10-06] MEDS ORDERED: MIDAZOLAM 2 MG/2 ML VIAL ONE (09:28)
[2023-10-06] MEDS ORDERED: ROCURONIUM 10 MG/ML (5 ML VIAL) IV ONE (09:28)
[2023-10-06] MEDS ORDERED: SUCCINYLCHOLINE CHLORIDE 200 MG/10 ML VIAL IV ONE (09:28)
[2023-10-06] MEDS ORDERED: fentaNYL (PF) 50 MCG/ML 2 ML AMP ONE (09:28)
--- NOTE | 2023-10-06 09:31 | XR ---
EXAMINATION TYPE: XR KUB DATE OF EXAM: 10/06/2023 9:15 AM CLINICAL INDICATION:Female, 53 years old with history of kidney stone; COMPARISON: 09/19/2023 TECHNIQUE: One radiographic view of the abdomen was obtained. FINDINGS: The bowel gas pattern is nonspecific without dilated loops of small or large bowel. There i s no evidence for organomegaly or pneumoperitoneum. The osseous structures are intact. Right renal calculi measuring up to 3 mm. Fecal material and gas are demonstrated throughout the colon and rectum . Fixation hardware in lower lumbar spine. Left hip arthroplasty changes. Hardware appears intact. IMPRESSION: 1. Nonspecific bowel gas pattern without radiographic evidence for acute process. 2. Similar right 3 mm calculus.
[2023-10-06] MEDS: IOPAMIDOL-370 100ML BTL MISCELLANE ONE (09:57)
[2023-10-06 10:42] VITALS: TEMP 97.6
--- NOTE | 2023-10-06 11:09 | P.OP ---
Date of Procedure: 10/06/23 Preoperative Diagnosis: Right renal calculus Postoperative Diagnosis: Same Procedure(s) Performed: Cystoscopy, right retrograde pyelogram, right ureteroscopy with Holmium laser lithotripsy and stone basketing, right ureteral stent insertion Anesthesia: GINNAA Surgeon: Semaj Camacho Estimated Blood Loss (ml): 0 IV fluids (ml): 600 Condition: stable Disposition: PACU Indications for Procedure: Patient is a 53-year-old white female with 1 previous episode of urolithiasis, which she presumably passed. She now presents with right flank pain radiating to the right lower abdomen. CT scan shows a 4 x 5 mm right lower pole renal calculus, which is not seen with certainty on a plain radiograph. Operative Findings: 4-5 mm right lower pole renal calculus, adherent to mucosa. Description of Procedure: The patient was taken to the operating room and placed in the dorsolithotomy position, with legs supported in Zbigniew stirrups. The external genitalia was prepped and draped sterilely. The 30 lens was used to introduce the 21-Kittitian Webb cystoscopic sheath through the urethra and into the bladder under direct vision. The bladder was examined in its entirety. Both ureteral orifices were normal anatomic location and configuration, and clear urine effluxed from both. No tumors or foreign bodies were seen. A 0.038 inch Glidewire was passed through the cystoscope. The right ureteral orifice was cannulated, and the Glidewire was advanced up to the renal pelvis. The cystoscope was removed, and an 11/13-Kittitian ureteral access catheter was passed over the wire, up to the proximal ureter. The Webb Cobra flexible ureteroscope was then passed through the ureteral access catheter sheath, up to the renal pelvis. The kidney was low-lying, and even when the wire was placed this was evident. Advancement of the ureteroscope through the UPJ and into the renal pelvis was somewhat difficult. Each calyx was examined, but due to the angle of the UPJ it was difficult to inspect each calyx. Contrast was injected to delineate the intrarenal anatomy. It was then possible to advance the ureteroscope into the lower pole calyx, where a 4 to 5 mm calculus was identified. The calculus was adherent to the mucosa. The 200 micron Holmium laser probe was passed through the ureteroscope, and lithotripsy was performed. After breaking the calculus away from the mucosa and fragmenting it, fragments were removed using a 1.9 Fr ench 0 tip nitinol basket. Once this was completed, pullout ureteroscopy was performed, showing no evidence of ureteral trauma. The Glidewire was passed up to the right renal pelvis, and after removing the ureteroscope the Glidewire was backloaded into the cystoscope, which was passed into the bladder. A 24 cm, 4.8 Kitt[place] double-J ureteral stent was placed over the wire. Proper stent positioni ng was verified fluoroscopically and endoscopically. The bladder was emptied and the cystoscope removed. The patient tolerated the procedure well and was taken to the recovery room in stable condition. [facility] [place] [facility] [place] Procedure Acuity: Elective Stone Size and Location: 4 to 5 mm, right lower pole Ureteral Dilation: No Ureteral Access Sheath Used: Yes Stone Sent for Analysis: Yes All Stones/Fragments Were Removed with a Basket: Yes Complications: No Preoperative Antibiotics Given: Yes Stent Placed: Yes If Stent Placed, Was String Left Attached: No If Stent Placed, When is it to be Removed: 2 weeks Discharge Medications: Toradol, oxybutynin, tamsulosin
--- NOTE | 2023-10-06 11:16 | FL ---
EXAMINATION TYPE: FL urography retrograde Intraoperative/procedural fluoroscopic services were provid ed. Total fluoroscopy time is 44 seconds with a total of 7 submitted images to PACS. Please see the o perative/procedural note for further details. DAP: [id number] mGym2
[2023-10-06] MEDS: HYDROmorphone 0.5 MG/0.5 ML SYRINGE IVP PRN (11:30)
[2023-10-06 12:10] VITALS: BP 142/70; PULSE 87; RESP 17
== END 2023-10-06 12:25 | disposition home or self-care (01) ==
LOC: OR 08:48
PROVIDERS: ATTEND Urology
DX: N20.0 Calculus of kidney (principal); G89.29 Other chronic pain; K58.9 Irritable bowel syndrome, unspecified; F17.210 Nicotine dependence, cigarettes, uncomplicated; F10.90 Alcohol use, unspecified, uncomplicated; F12.90 Cannabis use, unspecified, uncomplicated; Z88.1 Allergy status to other antibiotic agents; Z88.2 Allergy status to sulfonamides; Z90.49 Acquired absence of other specified parts of digestive tract; Z79.1 Long term (current) use of non-steroidal anti-inflammatories (NSAID); Z90.710 Acquired absence of both cervix and uterus; Z86.14 Personal history of Methicillin resistant Staphylococcus aureus infection; Z79.899 Other long term (current) drug therapy
CPT/HCPCS: 52356; 82365; 74420; 74018; C2625; C1769; J2250; J0330; J1100; J0690; J2405; J2001; J3010; J2704; J1170; Q9967

== ENCOUNTER → 2023-12-28 | Outpatient (CLI) | payer MEDICARE, OTHER ==
--- NOTE | 2023-12-28 13:17 | US ---
EXAMINATION TYPE: US kidneys/renal and bladder DATE OF EXAM: 12/28/2023 COMPARISON: NONE CLINICAL INDICATION: Female, 53 years old with history of N20.0 Right renal calculus; rt renal calc EXAM MEASUREMENTS: Right Kidney: 9.0x4.1x4.6 cm Left Kidney: 9.9x5.1x4.7 cm Right Kidney: possible 3mm stone midpole , no obstructive uropathy. No masses identified. Left Kidney: No hydronephrosis or masses seen Bladder: wnl Bilateral Jets seen: obscured by flash artifact from adjacent bowel Limited evaluation of the jets. exam limited by bowel gas and body habitus IMPRESSION: 1. No evidence for obstructive uropathy. 2. Possible right 3 mm nonobstructing renal calculus.
== END | disposition home or self-care (01) ==
LOC: RADUSWWP 12:35
PROVIDERS: ATTEND Urology
DX: N20.0 Calculus of kidney (principal); R14.3 Flatulence
CPT/HCPCS: 76770

== ENCOUNTER → 2024-02-16 | Outpatient (CLI) | payer MEDICARE, OTHER ==
[2024-02-17 01:16] LABS: Eosinophils # (A) 0.16 X 10*3/uL (0.04-0.35); Eosinophils % (A) 1.6 %; HCT 43.8 % (37.2-46.3); HGB 14.6 g/dL (12.0-15.0); Lymphocytes # (A) 3.48 X 10*3/uL (0.90-5.00); Lymphocytes % (A) 34.7 %; MCH 31.6 pg (27.0-32.0); MCHC 33.3 g/dL (32.0-37.0); MCV 94.8 FL (80.0-97.0); Mean Platelet Volume 11.3 FL (9.5-12.2); Monocytes # (A) 0.39 X 10*3/uL (0.20-1.00); Monocytes % (A) 3.9 %; NRBC Per 100 WBC 0 X 10*3/uL (0.00-0.01); Neutrophils # (A) 5.87 X 10*3/uL (1.80-7.70); Neutrophils % (A) 58.6 %; Platelet Count 380 X 10*3/uL (140-440); RBC 4.62 X 10*6/uL (4.10-5.20); RDW 12.9 % (11.5-14.5); WBC 10.02 X 10*3/uL (4.50-10.00)
[2024-02-17 02:00] LABS: ALT 19 U/L (8-44); AST 21 U/L (13-35); Albumin 4.6 g/dL (3.8-4.9); Albumin/Globulin Ratio 1.77 Ratio (1.60-3.17); Alkaline Phosphatase 110 U/L (41-126); BUN/Creat Ratio 21.29 Ratio (12.00-20.00); Bilirubin, Conjugated <0.20 mg/dL (0.20-0.40); Blood Urea Nitrogen 14.9 mg/dL (9.0-27.0); Calcium 10.3 mg/dL (8.7-10.3); Carbon Dioxide 23.1 mmol/L (21.6-31.8); Chloride 103 mmol/L (96-109); Globulin 2.6 g/dL (1.6-3.3); Glucose 101 mg/dL (70-110); Potassium 4.9 mmol/L (3.5-5.5); Sodium 139 mmol/L (135-145); Total Bilirubin <0.2 mg/dL (0.3-1.2); Total Protein 7.2 g/dL (6.2-8.2)
[2024-02-17 02:39] LABS: Prealbumin 27.5 mg/dL (18.0-42.0)
== END ==
LOC: LABWHC1 14:47
PROVIDERS: ATTEND Orthopaedic Surgery
DX: Z01.89 Encounter for other specified special examinations (principal); Z79.899 Other long term (current) drug therapy; Z13.1 Encounter for screening for diabetes mellitus; K76.9 Liver disease, unspecified; E78.2 Mixed hyperlipidemia
CPT/HCPCS: 36415; 80053; 82248; 82306; 82985; 83036; 84134; 84466; 85025; 85610; 85730; 86850; 86900; 86901

== ENCOUNTER → 2024-07-17 | Outpatient (CLI) | payer MEDICARE, OTHER ==
--- NOTE | 2024-07-17 09:40 | XR ---
EXAMINATION TYPE: XR ribs LT w pa chest xray DATE OF EXAM: 07/17/2024 9:30 AM INDICATION: Patient age:Female; 54 years old; Reason for study: [id number] INTERCOSTAL PAIN; [facility]. pain COMPARISON: CTA chest 10/31/2019, chest radiograph 06/04/2022 TECHNIQUE: Frontal and oblique views of the left ribs with PA chest radiograph. FINDINGS: The ribs have a normal appearance. No evidence of fracture. Overall, the lungs are clear. The cardiac silhouette is normal in size. The remaining osseous structures are intact. Postsurgical changes of the lumbar spine from fusion. IMPRESSION: No acute osseous pathology. Consider CT chest if there is continued clinical concern. [facility], , 07/17/2024 9:37 AM
== END | disposition home or self-care (01) ==
LOC: RADXRYALE 09:11
PROVIDERS: ATTEND Family Medicine
DX: R07.82 Intercostal pain (principal)

== ENCOUNTER → 2024-12-13 | Outpatient (CLI) | payer MEDICARE, OTHER ==
--- NOTE | 2024-12-13 13:30 | MM ---
Reason for Exam: Screening (asymptomatic). Last mammogram was performed 2 year(s) and 0 month(s) ago. Patient History: Menarche at age 13. First Full-Term at age 21. Right ovary removed at age 44. Hysterectomy at age 41. Postmenopausal. 2011, Excisional Biopsy on the Left side. Maternal grandmother had breast cancer, age 45. Maternal grandmother had breast cancer, age 50. Maternal grandmother had ovarian cancer at or over age 50. Maternal grandmother had breast cancer, bilateral, at or over age 50. Risk Values: Rubi 5 year model risk: 1.2%. NCI Lifetime model risk: 9.0%. Prior Study Comparison: 10/08/2014 Bilateral Diagnostic Mammogram, [facility]. 11/06/2015 Bilateral Screening Mammogram, [facility]. 12/17/2022 Bilateral MG 3D diag mammo w/cad MIKAELA, [facility]. Tissue Density: There are scattered areas of fibroglandular density. Findings: Analyzed By CAD. Right breast: There is no suspicious group of microcalcifications or new suspicious mass. Left breast: There is no suspicious group of microcalcifications or new suspicious mass. Overall Assessment: Negative, BI-RAD 1 Management: Screening Mammogram of both breasts in [address] [facility] will attempt to contact patient to return for supplemental views and ultrasound if indicated. Patient should continue monthly self-breast exams. A clinical breast exam by your physician is recommended on an annual basis. This exam should not preclude additional follow-up of suspicious palpable abnormalities. Note on Rubi scores and lifetime risk: 1. A Rubi score greater than 3% is considered moderate risk. If this is the case, consider specialist referral to assess eligibility for a risk reducing agent. 2. If overall lifetime risk for the development of breast cancer is 20% or higher, the patient may qualify for future screening with alternating mammogram and breast MRI. [facility], , 12/13/2024 1:27 PM. Electronically signed and approved by: Arthur Magdaleno DO
== END | disposition home or self-care (01) ==
LOC: RADMAMWWP 12:48
PROVIDERS: ATTEND Family Medicine
DX: Z12.31 Encounter for screening mammogram for malignant neoplasm of breast (principal); R92.323 Mammographic fibroglandular density, bilateral breasts; Z78.0 Asymptomatic menopausal state; Z80.3 Family history of malignant neoplasm of breast
CPT/HCPCS: 77063; 77067

== ENCOUNTER → 2024-12-18 | Outpatient (CLI) | payer MEDICARE, OTHER ==
--- NOTE | 2024-12-18 15:20 | CT ---
EXAMINATION TYPE: CT abdomen pelvis wo con CT DLP: 823 mGycm, Automated exposure control for dose reduction was used. DATE OF EXAM: 12/18/2024 9:25 AM COMPARISON: KUB radiograph 11/13/2024, CT of the pelvis 09/08/2023 CLINICAL INDICATION:Female, 54 years old with history of KIDNEY STONE PROTOCOL N23 UNSPECIFIED RENAL COLIC; RT SIDED PAIN, HX OF KIDNEY STONES TECHNIQUE: Standard CT of the abdomen and pelvis without IV or oral contrast. Lack of IV or oral co ntrast limits evaluation of solid and hollow organ viscera. Coronal and sagittal reformats were perfo rmed. FINDINGS: LOWER CHEST: Unremarkable noncontrast appearance. ABDOMEN LIVER: Unremarkable noncontrast appearance. GALLBLADDER AND BILE DUCTS: The gallbladder is surgically absent. No biliary duct dilatation. PANCREAS: Unremarkable noncontrast appearance. SPLEEN: Unremarkable noncontrast appearance. ADRENAL GLANDS: Unremarkable noncontrast appearance.. KIDNEYS AND URETERS: No evidence of hydronephrosis or renal calculus. No hydroureter or ureteral calc ulus identified. Circumaortic left renal vein. PELVIS BLADDER: Limited evaluation due to streak artifact from left hip prosthesis and underdistention. No g ross abnormality. REPRODUCTIVE: The uterus is surgically absent. ABDOMEN & PELVIS STOMACH AND BOWEL: Stomach and duodenum are unremarkable. The appendix is within normal limits. No fo cherelle bowel wall thickening or surrounding inflammatory changes. No evidence of bowel obstruction. PERITONEUM: No evidence of pneumoperitoneum or free fluid. VASCULATURE: Mild atherosclerotic calcifications are present throughout the abdominal aorta and its b ranches. No evidence of aortic aneurysm. Pelvic phleboliths. MUSCULOSKELETAL: No acute osseous abnormalities. Postsurgical changes from left hip arthroplasty. Add itional postsurgical changes from posterior lumbar fusion with bilateral pedicular screws and rods in volving L4-L5. Intervertebral disc cage identified which is along the posterior aspect of the disc sp alli abutting the spinal canal. Stable from prior exam. Grade 1 anterolisthesis of L3 on L4 with uncov ering the disc. No evidence of pars defects. LYMPH NODES: No gross evidence for lymphadenopathy. SOFT TISSUE/ABDOMINAL WALL: Unremarkable IMPRESSION: No evidence of obstructive uropathy. No renal calculi identified. [facility], , 12/18/2024 3:18 PM
== END | disposition home or self-care (01) ==
LOC: RADCTMAIN 09:05
PROVIDERS: ATTEND Urology
DX: N23 Unspecified renal colic (principal); Z87.442 Personal history of urinary calculi
CPT/HCPCS: 74176

== ENCOUNTER → 2024-12-25 | Outpatient (CLI) | payer MEDICARE, OTHER ==
[2024-12-25 15:40] LABS: Basophils # (A) 0.11 X 10*3/uL (0.00-0.10); Basophils % (A) 1.5 %; Eosinophils # (A) 0.21 X 10*3/uL (0.04-0.35); Eosinophils % (A) 2.9 %; HCT 44.5 % (37.2-46.3); HGB 14.6 g/dL (12.0-15.0); Immature Grans, Automated 0.30 %; Lymphocytes # (A) 2.66 X 10*3/uL (0.90-5.00); Lymphocytes % (A) 37.3 %; MCH 31.1 pg (27.0-32.0); MCHC 32.8 g/dL (32.0-37.0); MCV 94.9 FL (80.0-97.0); Monocytes # (A) 0.48 X 10*3/uL (0.20-1.00); Monocytes % (A) 6.7 %; NRBC Per 100 WBC 0 X 10*3/uL (0.00-0.01); Neutrophils # (A) 3.66 X 10*3/uL (1.80-7.70); Neutrophils % (A) 51.3 %; Platelet Count 335 X 10*3/uL (140-440); RBC 4.69 X 10*6/uL (4.10-5.20); RDW 12.6 % (11.5-14.5); WBC 7.14 X 10*3/uL (4.50-10.00)
[2024-12-25 15:42] LABS: ALT 17 U/L (8-44); AST 22 U/L (13-35); Albumin 4.6 g/dL (3.8-4.9); Albumin/Globulin Ratio 2.30 Ratio (1.60-3.17); Alkaline Phosphatase 117 U/L (41-126); Anion Gap 12.40 mmol/L (4.00-12.00); BUN/Creat Ratio 23.14 Ratio (12.00-20.00); Blood Urea Nitrogen 16.2 mg/dL (9.0-27.0); Calcium 9.8 mg/dL (8.7-10.3); Carbon Dioxide 25.6 mmol/L (21.6-31.8); Chloride 103 mmol/L (96-109); Cholesterol 221.00 mg/dL (0.00-200.00); Ferritin 62.0 ng/mL (10.0-291.0); Globulin 2.0 g/dL (1.6-3.3); Glucose 95 mg/dL (70-110); HDL Cholesterol 78.40 mg/dL (40.00-60.00); Iron 157 UG/DL (50-170); LDL Cholesterol,Calculated 118.2 mg/dL (0.0-131.0); Potassium 4.7 mmol/L (3.5-5.5); Sodium 141 mmol/L (135-145); T4, Free (Free Thyroxine) 1.17 ng/dL (0.80-1.80); Total Iron Binding Capacity 430 UG/DL (228-460); Total Protein 6.6 g/dL (6.2-8.2); Triglycerides 122.00 mg/dL (0.00-149.00); VLDL Calculation 24.40 mg/dL (5.00-40.00); Vitamin B12 633.0 pg/mL (200.0-944.0)
== END | disposition home or self-care (01) ==
LOC: LABWHC1 11:51
PROVIDERS: ATTEND Family Medicine
DX: Z13.220 Encounter for screening for lipoid disorders (principal); E56.9 Vitamin deficiency, unspecified; F41.8 Other specified anxiety disorders; R53.82 Chronic fatigue, unspecified
CPT/HCPCS: 36415; 80053; 80061; 82306; 82607; 82728; 82746; 83540; 83550; 83721; 84439; 84443; 85025

== ENCOUNTER → 2025-01-18 | Outpatient (CLI) | payer MEDICARE, OTHER ==
--- NOTE | 2025-01-18 10:17 | US ---
EXAMINATION TYPE: US abdomen complete DATE OF EXAM: 01/18/2025 COMPARISON: CT abdomen and pelvis 12/18/2024 CLINICAL INDICATION: Female, 54 years old with history of K66.0 PERITONEAL ADHESIONS; Pain gallbladde r removed. TECHNIQUE: Grayscale and color Doppler imaging of the abdomen was performed. FINDINGS: EXAM MEASUREMENTS: Liver Length: 12.3 cm Gallbladder Wall: Surgically absent CBD: .8 cm, color Doppler imaging was utilized to isolate the common bile duct for measurement. Spleen: 9.7 cm Right Kidney: 8.7 x 4.7 x 4.1 cm Left Kidney: 9.1 x 4.8 x 4.7 cm DISPATCH MANAGER NOTES: Pancreas: Tail obscured by overlying bowel gas Liver: wnl, no dilated ducts, masses or cysts. Gallbladder: Surgically absent CBD: wnl Spleen: wnl Right Kidney: wnl, No hydronephrosis, calculi or masses seen Left Kidney: wnl, No hydronephrosis, calculi or masses seen Upper IVC: wnl Abd Aorta: wnl The visualized portion of the pancreas unremarkable. The liver is within normal limits without focal lesion. Gallbladder is surgically absent. No suspicious abnormality within gallbladder fossa. Mild co mmon bile duct dilatation which is normal for post cholecystectomy. Spleen is within normal limits. B oth kidneys demonstrate no hydronephrosis, shadowing calculus or solid mass. The visualized portions of the upper IVC and abdominal aorta are within normal limits. IMPRESSION: 1. No ultrasound evidence for acute process. 2. Postcholecystectomy changes. [facility], , 01/18/2025 10:14 AM
== END | disposition home or self-care (01) ==
LOC: RADUSWWP 09:28
PROVIDERS: ATTEND Nurse Practitioner Family
DX: K66.0 Peritoneal adhesions (postprocedural) (postinfection) (principal); Z90.49 Acquired absence of other specified parts of digestive tract
CPT/HCPCS: 76700